=== PATIENT | female | born 1965 | race Caucasian/White ===

== ENCOUNTER 2016-05-25 10:15 | Emergency (ER) | payer OTHER ==
[2016-05-25 10:15] VITALS: BP 149/81
[~2016-05-25 10:15] MED LIST: AMOX875T PO; ANTI14DR4 AD; INSU100I13 SQ; INSU100V SQ; INSU100V8 SQ; OFLO5DRO4 AD; OXYC5CAP3 PO; PREG20SO PO; PREG50CA PO; TRAM50TA PO; WARF4TAB7 PO; WARF6TAB PO
[2016-05-25] MEDS ORDERED: IV NORMAL SALINE 1,000ML 1,000 ML IV ONE (10:30)
[2016-05-25] MEDS ORDERED: silver sulfADIAZINE 1% CREAM 50GM JAR. TP ONE (11:00)
[2016-05-25] MEDS ORDERED: INSULIN REGULAR 100 UNIT/ML 10ML VIAL. SQ ONE (11:00)
[2016-05-25] MEDS ORDERED: ALBUTEROL SULFATE 2.5 MG/3 ML NEBU. NEB ONE (11:00)
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
== END 2016-05-25 10:45 | disposition home or self-care (01) ==
LOC: ER 10:15
DX: T23.221A Burn of second degree of single right finger (nail) except thumb, initial encounter (principal); J70.5 Respiratory conditions due to smoke inhalation; E11.65 Type 2 diabetes mellitus with hyperglycemia; E11.621 Type 2 diabetes mellitus with foot ulcer; Z79.4 Long term (current) use of insulin; Z91.14 Patient's other noncompliance with medication regimen; Y26.XXXA Exposure to smoke, fire and flames, undetermined intent, initial encounter; Y93.89 Activity, other specified; Y99.8 Other external cause status; Y92.89 Other specified places as the place of occurrence of the external cause
CPT/HCPCS: 99283

== ENCOUNTER 2016-05-26 06:17 | Inpatient (IN) | payer OTHER ==
[~2016-05-26] VITALS: Ht 177.8 cm; Wt 78.2 kg
[2016-05-26] MEDS ORDERED: VANCOMYCIN 1 GM in IV NORMAL SALINE 250ML 250 ML IV ONE (06:45)
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
[2016-05-26] MEDS ORDERED: PIPERACILLIN/TAZOBACTAM 3.375 GM in IV NORMAL SALINE 50ML 50 ML IV ONE (07:00)
[2016-05-26] MEDS ORDERED: TETANUS AND DIPHTHERIA TOX/PF 0.5 ML VIAL. VAX IM ONE (07:00)
[2016-05-26] MEDS ORDERED: IV NORMAL SALINE 1,000ML 1,000 ML IV ONE (07:00)
[2016-05-26] MEDS ORDERED: INSULIN REGULAR 100 UNIT/ML 10ML VIAL. IV ONE ×2 (07:00→08:30)
[2016-05-26] MEDS ORDERED: VANCOMYCIN 1.75 GM in IV NORMAL SALINE 500ML 500 ML IV ONE ×2 (07:00→08:30)
--- NOTE | 2016-05-26 07:33 | RAD ---
Portable left foot, 3 views, 05/26/2016: History: Diabetes, wound No acute fracture or destructive bony lesion is seen. There are well corticated bony fragment along the dorsal aspect of the talonavicular articulation compatible with old trauma. There is moderate diffuse soft tissue swelling about the foot. IMPRESSION: No acute bony abnormality is detected.
[2016-05-26] MEDS ORDERED: PIPERACILLIN/TAZOBACTAM 3.375 GM VIAL IV ONE (07:50)
[2016-05-26] MEDS ORDERED: IV NORMAL SALINE 50ML 50 ML ONE (07:50)
[2016-05-26 07:55] LABS: BASO # 0.1 x10^3/uL (0.0-0.2); BASO % 1 % (0-3); EOS # 0.3 x10^3/uL (0.0-0.7); EOS % 3 % (0-3); HEMATOCRIT 40.8 % (36.0-47.0); HEMOGLOBIN 12.9 g/dL (12.0-15.5); LYMPH # 1.4 x10^3/uL (1.0-4.8); LYMPH % 13 % (24-48); MEAN CORPUSCULAR HEMOGLOBIN 29 pg (25-35); MEAN CORPUSCULAR HGB CONC 32 g/dL (31-37); MEAN CORPUSCULAR VOLUME 93 fL (79-100); MONO # 0.7 x10^3/uL (0.0-1.1); MONO % 6 % (0-9); NEUT # 8.6 x10^3uL (1.8-7.7); NEUT % 77 % (31-73); PLATELET COUNT 431 x10^3/uL (140-400); RED BLOOD COUNT 4.39 x10^6/uL (3.50-5.40); RED CELL DISTRIBUTION WIDTH 13.4 % (11.5-14.5); WHITE BLOOD COUNT 11.1 x10^3/uL (4.0-11.0)
[2016-05-26 08:01] LABS: ALBUMIN 1.9 g/dL (3.4-5.0); ALBUMIN/GLOBULIN RATIO 0.4 (1.0-1.7); CALCIUM 9.1 mg/dL (8.5-10.1); GFR 58.9; POTASSIUM 4.4 mmol/L (3.5-5.1); TOTAL BILIRUBIN 0.4 mg/dL (0.2-1.0); TOTAL PROTEIN 6.8 g/dL (6.4-8.2)
[2016-05-26 09:37] LABS: AMPHETAMINE/METHAMPHETAMINE NEG (NEG); BARBITURATES NEG (NEG); BENZODIAZEPINES NEG (NEG); CANNABINOIDS NEG (NEG); COCAINE NEG (NEG); METHADONE NEG (NEG); OPIATES NEG (NEG); PHENCYCLIDINE NEG (NEG)
[2016-05-26] MEDS: VANCOMYCIN PER PHARMACY MC PRN (10:37)
[2016-05-26] MEDS ORDERED: DEXTROSE 50% 25 GM / 50ML DISP.SYRIN. IV PRN (11:00)
[2016-05-26 11:03] VITALS: BP 154/96
[2016-05-26 11:38] VITALS: BP 142/92
[2016-05-26] MEDS: INSULIN ASPART 300 UNITS/3 ML INSULN.PEN SQ SCH ×3 (11:57→20:13)
[2016-05-26 14:34] VITALS: BP 131/81
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
[2016-05-26 19:41] VITALS: BP 150/89
[2016-05-26] MEDS: PREGABALIN 50 MG CAPSULE PO SCH (20:01)
[2016-05-26] MEDS: OXYCODONE IR 5 MG TABLET. PO SCH (20:01)
[2016-05-26] MEDS: VANCOMYCIN 1 GM in IV NORMAL SALINE 250ML 250 ML IV SCH (20:02)
[2016-05-26] MEDS ORDERED: INSULIN DETEMIR 300 UNITS/3 ML INSULN.PEN. SQ SCH (21:00)
[2016-05-26 23:05] VITALS: BP 105/66
[2016-05-27 05:15] VITALS: BP 100/67
[2016-05-27 06:25] LABS: BASO # 0.1 x10^3/uL (0.0-0.2); BASO % 1 % (0-3); EOS # 0.5 x10^3/uL (0.0-0.7); EOS % 5 % (0-3); HEMATOCRIT 37.5 % (36.0-47.0); HEMOGLOBIN 12.4 g/dL (12.0-15.5); LYMPH # 2.9 x10^3/uL (1.0-4.8); LYMPH % 32 % (24-48); MEAN CORPUSCULAR HEMOGLOBIN 31 pg (25-35); MEAN CORPUSCULAR HGB CONC 33 g/dL (31-37); MEAN CORPUSCULAR VOLUME 92 fL (79-100); MONO # 0.6 x10^3/uL (0.0-1.1); MONO % 7 % (0-9); NEUT # 4.9 x10^3uL (1.8-7.7); NEUT % 55 % (31-73); PLATELET COUNT 571 x10^3/uL (140-400); RED BLOOD COUNT 4.08 x10^6/uL (3.50-5.40); RED CELL DISTRIBUTION WIDTH 13.4 % (11.5-14.5)
[2016-05-27 06:41] LABS: ALBUMIN 1.5 g/dL (3.4-5.0); ALBUMIN/GLOBULIN RATIO 0.3 (1.0-1.7); CALCIUM 8.7 mg/dL (8.5-10.1); CREATININE 1.1 mg/dL (0.6-1.0); GFR 52.8; POTASSIUM 3.8 mmol/L (3.5-5.1); TOTAL BILIRUBIN 0.3 mg/dL (0.2-1.0); TOTAL PROTEIN 6.1 g/dL (6.4-8.2)
[2016-05-27 07:30] LABS: SEDIMENTATION RATE 125 (0-25)
[2016-05-27] MEDS ORDERED: INSULIN ASPART 300 UNITS/3 ML INSULN.PEN SQ SCH ×2 (08:00→17:00)
[2016-05-27] MEDS: PREGABALIN 50 MG CAPSULE PO SCH ×2 (08:13→20:20)
[2016-05-27] MEDS: OXYCODONE IR 5 MG TABLET. PO SCH ×4 (08:13→20:20)
[2016-05-27] MEDS: VANCOMYCIN 1 GM in IV NORMAL SALINE 250ML 250 ML IV SCH ×2 (08:14→20:21)
[2016-05-27] MEDS: INSULIN ASPART 300 UNITS/3 ML INSULN.PEN SQ SCH ×4 (08:18→20:27)
[2016-05-27 10:33] VITALS: BP 115/82
--- NOTE | 2016-05-27 12:35 | ACF ---
Admission Criteria Forms DIABETES Clinical Indications for Admission to Inpatient Care (Place 'X' for any and all applicable criteria): Admission is indicated by presence of ALL (if I & II) or ANY ONE (if III or IV) of the following (1)(2)(3)(4): [ ]I. Diabetes is uncontrolled as indicated by ANY ONE of the following: [ ]a) Diabetic ketoacidosis as indicated by ALL of the following (8): [ ]i) Hyperglycemia (eg, plasma glucose greater than 200 mg/ dL (11.1 mmol/L)) [ ]ii) Acidosis (eg, arterial pH less than 7.30, serum bicarbonate level less than 15 mEq/L (mmol/L)) [ ]iii) Moderate ketonuria or ketonemia [ ]b) Hyperglycemic hyperosmolar state as indicated by ALL of the following(9)(10): [ ]i) Neurologic dysfunction (eg, stupor, coma, hemiparesis , seizure)(13) [ ]ii) Plasma glucose greater than 600 mg/dL (33.3 mmol/L) [ ]iii) Serum osmolality greater than 320 mOsm/kg (mmol/kg) [ ]c) Severe signs or symptoms secondary to hyperglycemia indicated by ANY ONE of the following: [ ]i) Altered mental status(10) [ ]ii) Significant hypovolemia or dehydration [ ]iii) Intractable nausea or vomiting [ ]iv) Unexplained fever or severe infection [ ]v) Severe electrolyte abnormality (eg, hypokalemia, hyperkalemia, hypernatremia) [ ]II. Management at other levels of care (Also use Diabetes: Observation Care as appropriate) is not feasible because of ANY ONE of the following: [ ]a) Condition was not adequately corrected with treatment at other levels of care. [ ]b) Treatment at other levels of care is not appropriate because of condition severity (eg, hyperosmolar coma). [X ]III. Contraindications and/or Inappropriate clinical situations for Observational Care in patients with Diabetes, when ANY ONE of the following is required: [ X]a) Patient require specific diagnostic workup or therapeutic intervention 22 [ ]b) Patient with abnormal vital signs or altered mental status 23 [ ]IV. General contraindications and/or Inappropriate clinical situations for Observational Care in patients with Diabetes, when ANY ONE of the following is required: [ ]a) Prediction of prolongation of LOS based on ANY ONE of the following may be considered as a contraindication for observational care 2, 3, 4, 5, 6, 7, 8, 9, 10, 11 [ ]i) Age > 65 yrs. [ ]ii) Patient arriving by ambulance [ ]iii) Patient with high acuity [ ]iv) Patient requiring vital sign monitoring [ ]v) Patient on IV medication [ ]b) Systolic blood pressures 180mmHg 3,12 [ ]c) Patient with altered mental status including delirium and other alteration of consciousness, (3) [ ]d) Patient whose discharge disposition will be to a [facility] home or rehabilitation home should not be managed in Emergency Department Observation Unit. CMS rule requires 3 days hospital stay before such placement.3,13 [ ]e) Patient with failure to thrive due to broad array of etiologies 3,16,17 [ ]f) Inability to ambulate 3,14 Extended stay beyond goal length of stay may be needed for(3)(20): [ ]a) Treatment of precipitating causes [ ]b) Development of hypoglycemia [ ]c) Complications of treatment [ ]d) Complications of decompensated diabetes (eg, acute gastric dilatation, persistent metabolic or neurologic derangement) [ ]e) Active Comorbidities [ ]f) Older patients( 65 years or older) The original National Institutes of Health (NIH) content created by National [employer] of Health (NIH) has been revised. The portions of the content which have been revised are identified through the use of italic text or in bold,and [facility] has neither reviewed nor approved the modified material. All other unmodified content is copyright [facility]. Please see references footnoted in the original [facility] edition 2016 Admission Criteria Met?: Yes VIC MCCLELLAN May 27, 2016 12:35
[2016-05-27 15:40] VITALS: BP 132/83
[2016-05-27] MEDS ORDERED: PIP/TAZO PER PHARMACY MC PRN (16:00)
[2016-05-27] MEDS: WARFARIN 6 MG TABLET. PO SCH (17:04)
[2016-05-27] MEDS: INSULIN DETEMIR 300 UNITS/3 ML INSULN.PEN. SQ SCH (20:28)
[2016-05-27 20:30] VITALS: BP 129/78
[2016-05-27] MEDS: PIPERACILLIN/TAZOBACTAM 4.5 GM in IV NORMAL SALINE 50ML 50 ML IV SCH (21:22)
[2016-05-27 21:33] LABS: VANC TR 37.6 mcg/mL (10.0-20.0)
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
[2016-05-27] MEDS: VANCOMYCIN PER PHARMACY MC PRN (21:53)
[2016-05-28] MEDS: PIPERACILLIN/TAZOBACTAM 4.5 GM in IV NORMAL SALINE 50ML 50 ML IV SCH ×3 (05:35→22:29)
[2016-05-28 06:09] VITALS: BP 144/91
[2016-05-28] MEDS: PREGABALIN 50 MG CAPSULE PO SCH ×2 (08:26→20:25)
[2016-05-28] MEDS: OXYCODONE IR 5 MG TABLET. PO SCH ×4 (08:26→20:25)
[2016-05-28 08:55] LABS: CREATININE 1.2 mg/dL (0.6-1.0); GFR 47.7; POTASSIUM 4.7 mmol/L (3.5-5.1)
[2016-05-28] MEDS: VANCOMYCIN 1 GM in IV NORMAL SALINE 250ML 250 ML IV SCH (09:00)
[2016-05-28 09:01] LABS: VANC TR 20.6 mcg/mL (10.0-20.0)
[2016-05-28] MEDS: VANCOMYCIN PER PHARMACY MC PRN (09:36)
[2016-05-28] MEDS: INSULIN ASPART 300 UNITS/3 ML INSULN.PEN SQ SCH ×6 (09:50→20:31)
[2016-05-28] MEDS: VANCOMYCIN 750 MG in IV NORMAL SALINE 250ML 250 ML IV SCH ×2 (11:33→20:24)
[2016-05-28 12:16] VITALS: BP 134/81
[2016-05-28] MEDS: WARFARIN 6 MG TABLET. PO SCH (16:09)
[2016-05-28] MEDS: TRAMADOL 50 MG TABLET. PO PRN (16:10)
[2016-05-28 18:55] VITALS: BP 130/78
[2016-05-28] MEDS: INSULIN DETEMIR 300 UNITS/3 ML INSULN.PEN. SQ SCH (20:30)
[2016-05-28 21:21] VITALS: BP 128/74
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
[2016-05-28 22:10] LABS: HEMOGLOBIN A1C 15.2 % (4.8-5.6)
[2016-05-29] MEDS: PIPERACILLIN/TAZOBACTAM 4.5 GM in IV NORMAL SALINE 50ML 50 ML IV SCH ×2 (04:58→13:37)
[2016-05-29 05:14] VITALS: BP 132/91
[2016-05-29] MEDS: INSULIN ASPART 300 UNITS/3 ML INSULN.PEN SQ SCH ×7 (07:30→21:00)
[2016-05-29] MEDS: OXYCODONE IR 5 MG TABLET. PO SCH ×2 (08:56→13:37)
[2016-05-29] MEDS: PREGABALIN 50 MG CAPSULE PO SCH ×2 (08:56→20:55)
[2016-05-29] MEDS: VANCOMYCIN 750 MG in IV NORMAL SALINE 250ML 250 ML IV SCH ×2 (08:57→23:37)
[2016-05-29 12:45] VITALS: BP 145/80
[2016-05-29] MEDS ORDERED: IV NORMAL SALINE 250ML 250 ML ONE (13:13)
[2016-05-29] MEDS: OXYCODONE IR 5 MG TABLET. PO PRN ×2 (14:59→20:07)
[2016-05-29] MEDS: WARFARIN 6 MG TABLET. PO SCH (16:41)
[2016-05-29 19:00] VITALS: BP 148/93
[2016-05-29] MEDS ORDERED: INSULIN ASPART 300 UNITS/3 ML INSULN.PEN SQ SCH (21:00)
[2016-05-29] MEDS: INSULIN DETEMIR 300 UNITS/3 ML INSULN.PEN. SQ SCH (21:41)
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
[2016-05-30] MEDS: OXYCODONE IR 5 MG TABLET. PO PRN ×4 (00:10→22:08)
[2016-05-30] MEDS: PIPERACILLIN/TAZOBACTAM 4.5 GM in IV NORMAL SALINE 50ML 50 ML IV SCH ×4 (00:10→22:18)
[2016-05-30 05:44] VITALS: BP 124/80
[2016-05-30] MEDS: INSULIN ASPART 300 UNITS/3 ML INSULN.PEN SQ SCH ×7 (08:00→22:12)
[2016-05-30] MEDS: VANCOMYCIN 750 MG in IV NORMAL SALINE 250ML 250 ML IV SCH ×2 (08:55→22:08)
[2016-05-30] MEDS: PREGABALIN 50 MG CAPSULE PO SCH ×2 (09:00→22:08)
[2016-05-30 09:22] LABS: VANC TR 14.4 mcg/mL (10.0-20.0)
[2016-05-30 11:29] VITALS: BP 138/78
[2016-05-30] MEDS: TRAMADOL 50 MG TABLET. PO PRN (12:27)
[2016-05-30 14:58] VITALS: BP 136/83
[2016-05-30] MEDS: WARFARIN 6 MG TABLET. PO SCH (16:05)
[2016-05-30 19:30] VITALS: BP 132/81
[2016-05-30] MEDS: INSULIN DETEMIR 300 UNITS/3 ML INSULN.PEN. SQ SCH (22:18)
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
[2016-05-31] MEDS: OXYCODONE IR 5 MG TABLET. PO PRN ×3 (02:23→19:50)
[2016-05-31 05:09] VITALS: BP 138/89
[2016-05-31] MEDS: PIPERACILLIN/TAZOBACTAM 4.5 GM in IV NORMAL SALINE 50ML 50 ML IV SCH ×3 (06:16→21:38)
[2016-05-31 07:30] LABS: BASO # 0.1 x10^3/uL (0.0-0.2); BASO % 1 % (0-3); EOS # 0.4 x10^3/uL (0.0-0.7); EOS % 5 % (0-3); HEMATOCRIT 32.4 % (36.0-47.0); HEMOGLOBIN 10.9 g/dL (12.0-15.5); LYMPH # 1.8 x10^3/uL (1.0-4.8); LYMPH % 22 % (24-48); MEAN CORPUSCULAR HEMOGLOBIN 31 pg (25-35); MEAN CORPUSCULAR HGB CONC 34 g/dL (31-37); MEAN CORPUSCULAR VOLUME 93 fL (79-100); MONO # 0.6 x10^3/uL (0.0-1.1); MONO % 7 % (0-9); NEUT # 5.3 x10^3uL (1.8-7.7); NEUT % 64 % (31-73); PLATELET COUNT 451 x10^3/uL (140-400); RED CELL DISTRIBUTION WIDTH 13.7 % (11.5-14.5); WHITE BLOOD COUNT 8.2 x10^3/uL (4.0-11.0)
[2016-05-31 07:46] LABS: ALBUMIN 1.2 g/dL (3.4-5.0); ALBUMIN/GLOBULIN RATIO 0.3 (1.0-1.7); CALCIUM 8.5 mg/dL (8.5-10.1); CREATININE 1.2 mg/dL (0.6-1.0); GFR 47.7; MAGNESIUM 1.9 mg/dL (1.8-2.4); POTASSIUM 4.4 mmol/L (3.5-5.1); TOTAL BILIRUBIN 0.2 mg/dL (0.2-1.0); TOTAL PROTEIN 5.6 g/dL (6.4-8.2)
[2016-05-31] MEDS: VANCOMYCIN 750 MG in IV NORMAL SALINE 250ML 250 ML IV SCH ×2 (09:18→20:00)
[2016-05-31] MEDS: COLLAGENASE 250 UNIT/GM TOPICAL OINTMENT 30GM TUBE. TP SCH (09:20)
[2016-05-31] MEDS: PREGABALIN 50 MG CAPSULE PO SCH ×2 (09:21→19:59)
[2016-05-31] MEDS: INSULIN ASPART 300 UNITS/3 ML INSULN.PEN SQ SCH ×7 (09:32→20:01)
[2016-05-31] MEDS: INSULIN DETEMIR 300 UNITS/3 ML INSULN.PEN. SQ SCH ×2 (09:33→20:03)
[2016-05-31] MEDS ORDERED: FUROSEMIDE 40 MG/4 ML VIAL IVP ONE (10:30)
[2016-05-31] MEDS: PANTOPRAZOLE 40 MG TABLET. PO SCH (12:09)
[2016-05-31] MEDS ORDERED: MORPHINE SULFATE 4 MG/ML DISP.SYRIN. IV ONE (14:30)
[2016-05-31 15:53] VITALS: BP 129/84
[2016-05-31] MEDS: WARFARIN 6 MG TABLET. PO SCH (16:59)
[2016-05-31 18:55] VITALS: BP 153/93
[2016-05-31] MEDS: TRAMADOL 50 MG TABLET. PO PRN (19:59)
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
[2016-05-31] MEDS ORDERED: IV NORMAL SALINE 100ML 100 ML ONE (21:35)
[2016-05-31 22:26] VITALS: BP 171/92
[2016-06-01] MEDS: PIPERACILLIN/TAZOBACTAM 4.5 GM in IV NORMAL SALINE 50ML 50 ML IV SCH ×3 (05:08→21:56)
[2016-06-01 06:12] VITALS: BP 153/97
[2016-06-01 06:26] LABS: ALBUMIN 1.3 g/dL (3.4-5.0); ALBUMIN/GLOBULIN RATIO 0.4 (1.0-1.7); CALCIUM 8.3 mg/dL (8.5-10.1); CREATININE 1.1 mg/dL (0.6-1.0); GFR 52.8; MAGNESIUM 1.8 mg/dL (1.8-2.4); POTASSIUM 3.7 mmol/L (3.5-5.1); TOTAL BILIRUBIN 0.2 mg/dL (0.2-1.0); TOTAL PROTEIN 4.8 g/dL (6.4-8.2)
[2016-06-01 06:30] LABS: BASO # 0.1 x10^3/uL (0.0-0.2); BASO % 1 % (0-3); EOS # 0.4 x10^3/uL (0.0-0.7); EOS % 4 % (0-3); HEMATOCRIT 35.3 % (36.0-47.0); HEMOGLOBIN 11.7 g/dL (12.0-15.5); LYMPH # 2.2 x10^3/uL (1.0-4.8); LYMPH % 19 % (24-48); MEAN CORPUSCULAR HEMOGLOBIN 31 pg (25-35); MEAN CORPUSCULAR HGB CONC 33 g/dL (31-37); MEAN CORPUSCULAR VOLUME 92 fL (79-100); MONO # 0.7 x10^3/uL (0.0-1.1); MONO % 6 % (0-9); NEUT # 8.1 x10^3uL (1.8-7.7); NEUT % 71 % (31-73); PLATELET COUNT 533 x10^3/uL (140-400); RED BLOOD COUNT 3.82 x10^6/uL (3.50-5.40); RED CELL DISTRIBUTION WIDTH 13.4 % (11.5-14.5); WHITE BLOOD COUNT 11.5 x10^3/uL (4.0-11.0)
[2016-06-01] MEDS: INSULIN ASPART 300 UNITS/3 ML INSULN.PEN SQ SCH ×7 (07:30→20:40)
[2016-06-01] MEDS: PANTOPRAZOLE 40 MG TABLET. PO SCH (08:59)
[2016-06-01] MEDS: ASCORBIC ACID 500 MG TABLET PO SCH (08:59)
[2016-06-01] MEDS: ZINC SULFATE 220 MG CAPSULE. PO SCH (08:59)
[2016-06-01] MEDS: ENOXAPARIN 40 MG/0.4 ML DISP.SYRIN. SQ SCH (08:59)
[2016-06-01] MEDS: PREGABALIN 50 MG CAPSULE PO SCH ×2 (09:00→20:40)
[2016-06-01] MEDS: VANCOMYCIN 750 MG in IV NORMAL SALINE 250ML 250 ML IV SCH ×2 (09:01→20:40)
[2016-06-01] MEDS: INSULIN DETEMIR 300 UNITS/3 ML INSULN.PEN. SQ SCH ×2 (09:21→20:49)
[2016-06-01] MEDS: OXYCODONE IR 5 MG TABLET. PO PRN ×2 (12:43→20:41)
--- NOTE | 2016-06-01 12:47 | RAD ---
Left foot, 3 views, 06/01/2016: History: Diabetic foot ulcer No fracture or destructive bony lesion is seen. There are mild pattern degenerative changes. There is moderate soft tissue swelling IMPRESSION: No acute bony abnormality is detected.
[2016-06-01] MEDS: TRAMADOL 50 MG TABLET. PO PRN (15:43)
[2016-06-01] MEDS: COLLAGENASE 250 UNIT/GM TOPICAL OINTMENT 30GM TUBE. TP SCH (15:44)
[2016-06-01 15:52] VITALS: BP 154/103
[2016-06-01] MEDS ORDERED: WARFARIN 1 MG TABLET. PO SCH (16:00)
[2016-06-01] MEDS ORDERED: WARFARIN 6 MG TABLET. PO SCH (16:00)
[2016-06-01] MEDS ORDERED: CLONIDINE TTS-1 PATCH TD SCH (17:00)
[2016-06-01 18:18] VITALS: BP 139/80
[2016-06-01 18:20] VITALS: BP 135/65
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
[2016-06-02] MEDS: TRAMADOL 50 MG TABLET. PO PRN (01:09)
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
[2016-06-02] MEDS: PIPERACILLIN/TAZOBACTAM 4.5 GM in IV NORMAL SALINE 50ML 50 ML IV SCH (06:21)
[2016-06-02 06:26] VITALS: BP 151/93
[2016-06-02] MEDS: ENOXAPARIN 40 MG/0.4 ML DISP.SYRIN. SQ SCH ×2 (07:30→12:13)
[2016-06-02] MEDS: INSULIN ASPART 300 UNITS/3 ML INSULN.PEN SQ SCH ×4 (07:30→12:15)
[2016-06-02] MEDS: ASCORBIC ACID 500 MG TABLET PO SCH (08:44)
[2016-06-02] MEDS: OXYCODONE IR 5 MG TABLET. PO PRN (08:44)
[2016-06-02] MEDS: PANTOPRAZOLE 40 MG TABLET. PO SCH (08:44)
[2016-06-02] MEDS: PREGABALIN 50 MG CAPSULE PO SCH (08:44)
[2016-06-02] MEDS: ZINC SULFATE 220 MG CAPSULE. PO SCH (08:44)
[2016-06-02] MEDS: VANCOMYCIN 750 MG in IV NORMAL SALINE 250ML 250 ML IV SCH (08:45)
[2016-06-02] MEDS: INSULIN DETEMIR 300 UNITS/3 ML INSULN.PEN. SQ SCH (08:53)
[2016-06-02] MEDS: COLLAGENASE 250 UNIT/GM TOPICAL OINTMENT 30GM TUBE. TP SCH (09:00)
== END 2016-06-02 12:45 | DRG 622 ==
LOC: ER 06:17 → 1 SOUTH 06:57
PROVIDERS: ADMIT Internal Medicine; ATTEND Internal Medicine
PROC: 0JBR0ZZ Excision of Left Foot Subcutaneous Tissue and Fascia, Open Approach (ICD-10-PCS; principal; 2016-06-01)
PROC: 0HBLXZZ Excision of Left Lower Leg Skin, External Approach (ICD-10-PCS; 2016-06-01)
DX: E10.621 Type 1 diabetes mellitus with foot ulcer (principal); E43 Unspecified severe protein-calorie malnutrition; R65.10 Systemic inflammatory response syndrome (SIRS) of non-infectious origin without acute organ dysfunction; T25.222A Burn of second degree of left foot, initial encounter; E10.22 Type 1 diabetes mellitus with diabetic chronic kidney disease; E10.42 Type 1 diabetes mellitus with diabetic polyneuropathy; E10.628 Type 1 diabetes mellitus with other skin complications; E10.65 Type 1 diabetes mellitus with hyperglycemia; E78.5 Hyperlipidemia, unspecified; F19.10 Other psychoactive substance abuse, uncomplicated; G89.29 Other chronic pain; I12.9 Hypertensive chronic kidney disease with stage 1 through stage 4 chronic kidney disease, or unspecified chronic kidney disease; F17.210 Nicotine dependence, cigarettes, uncomplicated; E10.51 Type 1 diabetes mellitus with diabetic peripheral angiopathy without gangrene; J70.5 Respiratory conditions due to smoke inhalation; N18.9 Chronic kidney disease, unspecified; L97.529 Non-pressure chronic ulcer of other part of left foot with unspecified severity; Z59.0 Homelessness; Z80.1 Family history of malignant neoplasm of trachea, bronchus and lung; Z91.11 Patient's noncompliance with dietary regimen; Z91.14 Patient's other noncompliance with medication regimen; Z91.19 Patient's noncompliance with other medical treatment and regimen; Z79.4 Long term (current) use of insulin; Z88.5 Allergy status to narcotic agent; Z89.421 Acquired absence of other right toe(s); Z68.24 Body mass index [BMI] 24.0-24.9, adult; T24.102A Burn of first degree of unspecified site of left lower limb, except ankle and foot, initial encounter
CPT/HCPCS: 36415; 73630; 80048; 80053; 80202; 82010; 82947; 83036; 83605; 83735; 84443; 85027; 85610; 85651; 86140; 87040; 90471; 90714; 96365; 96375; G0480; G0481; J0775; J1650; J1815; J1940; J2270; J2543; J3370; J7040; J7050; 99285-25; J7030

== ENCOUNTER 2017-01-10 07:47 | Inpatient (IN) | payer OTHER ==
[~2017-01-10] VITALS: Ht 177.8 cm; Wt 84.1 kg
[~2017-01-10 07:47] MED LIST changes: +OXYC5CAP PO; -OXYC5CAP3 PO
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
[2017-01-10] MEDS ORDERED: ONDANSETRON PF 4 MG/2 ML VIAL. IV ONE (08:00)
[2017-01-10] MEDS ORDERED: IV NORMAL SALINE 1,000ML 1,000 ML IV ONE (08:00)
[2017-01-10 08:28] LABS: BASO # 0.1 x10^3/uL (0.0-0.2); BASO % 1 % (0-3); EOS # 0.2 x10^3/uL (0.0-0.7); EOS % 3 % (0-3); HEMOGLOBIN 13.3 g/dL (12.0-15.5); LYMPH # 1.7 x10^3/uL (1.0-4.8); LYMPH % 24 % (24-48); MEAN CORPUSCULAR HEMOGLOBIN 28 pg (25-35); MEAN CORPUSCULAR HGB CONC 33 g/dL (31-37); MEAN CORPUSCULAR VOLUME 86 fL (79-100); MONO # 0.5 x10^3/uL (0.0-1.1); MONO % 7 % (0-9); NEUT # 4.8 x10^3uL (1.8-7.7); NEUT % 66 % (31-73); PLATELET COUNT 369 x10^3/uL (140-400); RED BLOOD COUNT 4.76 x10^6/uL (3.50-5.40); RED CELL DISTRIBUTION WIDTH 15.3 % (11.5-14.5); WHITE BLOOD COUNT 7.3 x10^3/uL (4.0-11.0)
--- NOTE | 2017-01-10 08:32 | RAD ---
Indication nausea vomiting and chills. A single view of the chest was obtained. No prior imaging of the chest is available. The heart, pulmonary vessels and mediastinum appear normal. The lungs are clear. Bony structures appear grossly intact. IMPRESSION: No acute finding in the chest
[2017-01-10 08:50] LABS: ALBUMIN 1.8 g/dL (3.4-5.0); CALCIUM 8.3 mg/dL (8.5-10.1); CREATININE 1.5 mg/dL (0.6-1.0); DIRECT BILIRUBIN 0.1 mg/dL (0.0-0.2); GFR 36.8; TOTAL BILIRUBIN 0.5 mg/dL (0.2-1.0); TOTAL PROTEIN 5.2 g/dL (6.4-8.2)
[2017-01-10 08:52] LABS: POTASSIUM 2.9 mmol/L (3.5-5.1)
[2017-01-10] MEDS ORDERED: silver sulfADIAZINE 1% CREAM 50GM JAR. TP ONE (09:30)
[2017-01-10] MEDS ORDERED: ONDANSETRON PF 4 MG/2 ML VIAL. IV PRN (10:00)
[2017-01-10] MEDS ORDERED: POTASSIUM CHLORIDE 20 MEQ TABLET.ER. PO ONE ×2 (10:00→13:30)
[2017-01-10] MEDS ORDERED: DIPHTH,PERTUSS(ACELL),TET TOX 0.5 ML DISP.SYRIN. VAX IM ONE (10:15)
[2017-01-10 12:33] VITALS: BP 182/97
[2017-01-10] MEDS ORDERED: INSULIN ASPART 300 UNITS/3 ML INSULN.PEN SQ ONE (13:30)
--- NOTE | 2017-01-10 13:54 | EKG ---
[address] [address] Test Date: 2017-01-10 Test Time: 08:52:08 Pat Name: REMY REARDON Department: Room: 119 A Gender: F Yarn Carrier: CARL : 1965 Requested By: LEORA HUSSEIN Order Number: [id number] Reading MD: Keith Martinez MD Measurements Intervals [place] Rate: 100 P: 54 [place]: 154 QRS: 3 QRSD: 94 T: 90 QT: 376 QTc: 488 Interpretive Statements SINUS RHYTHM QRS(T) CONTOUR ABNORMALITY CONSISTENT WITH ANTEROSEPTAL INFARCT PROBABLY OLD CONSIDER INFERIOR MYOCARDIAL DAMAGE ST & T ABNORMALITY, CONSIDER Electronically Signed On 01-12-2017 16:21:45 CDT by Keith Martinez MD
[2017-01-10] MEDS ORDERED: ASPI325T8 PO (14:45)
[2017-01-10] MEDS ORDERED: ATOR10TA PO (14:45)
[2017-01-10] MEDS ORDERED: LOSA100T6 PO (14:45)
[2017-01-10] MEDS ORDERED: CEPH500C PO (14:46)
[2017-01-10 15:03] VITALS: BP 160/98
[2017-01-10] MEDS ORDERED: traMADol 50 MG TABLET PO PRN (15:15)
[2017-01-10] MEDS ORDERED: VANCOMYCIN 2 GM in IV NORMAL SALINE 500ML 500 ML IV ONE (17:00)
[2017-01-10] MEDS ORDERED: WARFARIN 6 MG TABLET. PO SCH (17:15)
[2017-01-10] MEDS: INSULIN ASPART 300 UNITS/3 ML INSULN.PEN SQ SCH (17:19)
[2017-01-10] MEDS: VANCOMYCIN PER PHARMACY MC PRN (17:27)
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
[2017-01-10] MEDS: POTASSIUM CL 40MEQ IN 0.9%NACL 1,000 ML IV SCH (19:16)
[2017-01-10 20:45] VITALS: BP 130/80
[2017-01-10] MEDS: ZINC SULFATE 220 MG CAPSULE. PO SCH (22:11)
[2017-01-10] MEDS: ATORVASTATIN CALCIUM 10 MG TABLET. PO SCH (22:11)
[2017-01-10] MEDS: NICOTINE 14MG PATCH. TD SCH (22:12)
[2017-01-10] MEDS: ASCORBIC ACID 500 MG TABLET PO SCH (22:16)
[2017-01-10] MEDS: INSULIN DETEMIR 300 UNITS/3 ML INSULN.PEN. SQ SCH (22:21)
[2017-01-10] MEDS ORDERED: PREGABALIN 50 MG CAPSULE ONE (22:22)
[2017-01-10] MEDS: PREGABALIN 50 MG CAPSULE PO SCH (22:23)
[2017-01-10 23:00] VITALS: BP 166/95
[2017-01-11 05:50] VITALS: BP 139/83
[2017-01-11] MEDS ORDERED: POTASSIUM CL 40MEQ IN 0.9%NACL 1,000 ML IV ONE ×2 (06:08→11:40)
[2017-01-11] MEDS: POTASSIUM CL 40MEQ IN 0.9%NACL 1,000 ML IV SCH ×3 (06:38→21:58)
[2017-01-11 07:32] LABS: CALCIUM 8.1 mg/dL (8.5-10.1); CREATININE 1.2 mg/dL (0.6-1.0); GFR 47.6
[2017-01-11 07:33] LABS: BASO # 0.1 x10^3/uL (0.0-0.2); BASO % 1 % (0-3); EOS # 0.3 x10^3/uL (0.0-0.7); EOS % 4 % (0-3); HEMATOCRIT 40.1 % (36.0-47.0); HEMOGLOBIN 12.9 g/dL (12.0-15.5); LYMPH # 1.9 x10^3/uL (1.0-4.8); LYMPH % 25 % (24-48); MEAN CORPUSCULAR HEMOGLOBIN 28 pg (25-35); MEAN CORPUSCULAR HGB CONC 32 g/dL (31-37); MEAN CORPUSCULAR VOLUME 88 fL (79-100); MONO # 0.6 x10^3/uL (0.0-1.1); MONO % 8 % (0-9); NEUT # 4.7 x10^3uL (1.8-7.7); NEUT % 62 % (31-73); PLATELET COUNT 283 x10^3/uL (140-400); RED BLOOD COUNT 4.56 x10^6/uL (3.50-5.40); RED CELL DISTRIBUTION WIDTH 15.6 % (11.5-14.5); WHITE BLOOD COUNT 7.6 x10^3/uL (4.0-11.0)
[2017-01-11] MEDS: INSULIN ASPART 300 UNITS/3 ML INSULN.PEN SQ SCH ×2 (07:56→16:52)
[2017-01-11] MEDS ORDERED: ASPIRIN 325 MG TABLET ONE (08:38)
[2017-01-11] MEDS ORDERED: NICOTINE 14MG PATCH. TD ONE (08:38)
[2017-01-11] MEDS ORDERED: ZINC SULFATE 220 MG CAPSULE. PO ONE (08:38)
[2017-01-11] MEDS ORDERED: ASCORBIC ACID 500 MG TABLET ONE (08:39)
[2017-01-11] MEDS ORDERED: LOSARTAN 50 MG TABLET. ONE (08:39)
[2017-01-11] MEDS ORDERED: PREGABALIN 150 MG CAPSULE ONE (08:39)
[2017-01-11] MEDS: ASCORBIC ACID 500 MG TABLET PO SCH (08:49)
[2017-01-11] MEDS: ASPIRIN 325 MG TABLET PO SCH (08:49)
[2017-01-11] MEDS: ZINC SULFATE 220 MG CAPSULE. PO SCH (08:50)
[2017-01-11] MEDS: LOSARTAN 50 MG TABLET. PO SCH (08:50)
[2017-01-11] MEDS: NICOTINE 14MG PATCH. TD SCH (08:52)
[2017-01-11] MEDS: PREGABALIN 50 MG CAPSULE PO SCH ×2 (09:00→21:26)
[2017-01-11] MEDS ORDERED: IOHEXOL 300 MG/ML 75 ML VIAL. IV ONE (09:00)
[2017-01-11 11:03] VITALS: BP 170/109
[2017-01-11] MEDS ORDERED: INSULIN ASPART 300 UNITS/3 ML INSULN.PEN SQ SCH (11:30)
[2017-01-11 11:33] LABS: BARBITURATES NEG (NEG); BENZODIAZEPINES NEG (NEG); CANNABINOIDS NEG (NEG); COCAINE NEG (NEG); METHADONE NEG (NEG); OPIATES NEG (NEG); PHENCYCLIDINE NEG (NEG)
[2017-01-11 11:34] LABS: BACTERIA,URINE 0 /HPF (0-FEW); BILIRUBIN,URINE NEG (NEG); CLARITY,URINE CLEAR; COLOR,URINE STRAW; GLUCOSE,URINE >=1000 mg/dL (NEG); NITRITE,URINE NEG (NEG); SQUAMOUS EPITHELIAL CELL,UR OCC /LPF; UROBILINOGEN,URINE 0.2 mg/dL (0.2 mg/dL); WBC,URINE 0 /HPF (0-4)
[2017-01-11 11:38] LABS: AMPHETAMINE/METHAMPHETAMINE POS (NEG)
[2017-01-11] MEDS ORDERED: cloNIDine HCL 0.1 MG TABLET PO PRN (12:00)
[2017-01-11] MEDS ORDERED: cloNIDine HCL 0.1 MG TABLET PO ONE (12:30)
[2017-01-11 12:56] VITALS: BP 159/92
--- NOTE | 2017-01-11 13:28 | RAD ---
CT of the left foot with contrast, 01/11/2017: History: Foot ulcers, possible osteomyelitis Multidetector CT imaging was performed following an IV bolus injection of iodinated contrast material. No destructive bony lesion or fracture is identified. There is moderate hypertrophic degenerative change at the talonavicular articulation. Mild degenerative changes are present without other scattered fluid and ankle joints. There is moderate subcutaneous edema, particularly along the plantar aspect of the foot. There is a focus of increased density in the soft tissues along the plantar aspect of the third MTP joint, likely related to one of the patient's known plantar ulcers. No focal fluid collection is seen to suggest a discrete abscess. IMPRESSION: No acute bony abnormality is detected.
[2017-01-11 15:26] VITALS: BP 123/71
--- NOTE | 2017-01-11 15:54 | PDOC ---
SUBJECTIVE: DOING A LITTLE BIT BETTER TODAY. WOUND NURSE HERE FOR ULCER DEBRIDEMENT. HAS BEEN CALM AND NOT TOO ANXIOUS. COOPERATING WITH STAFF. OBJECTIVE: Problems: Problems Medical Problems: (1) Diabetic foot ulcer Status: Acute (2) Uncontrolled diabetes mellitus Status: Acute ASSESSMENT: A 51-year-old in debilitated state. 1. Frequent stools, questionable parasite. 2. Had been on long-term cephalexin at some point, is at risk for C. diff. 3. Hypokalemia. 4. Elevated creatinine, questionable whether it is acute versus chronic. 5. Dehydration. 6. Left diabetic foot ulcer. 7. Tobacco use disorder. 8. Noncompliance. 9. Poorly controlled type 1 diabetes. 10. Severe hypoalbuminemia 11. Mild cellulitis of the left foot and keenan. LEFT PLANTAR FOOT ULCER , AFTER INFORMED CONSENT AND WITH THE ASSISTANCE OF VIRGEN GU WAS DEBRIDED WITHOUT DIFFICULTY. THE ESCHAR WAS UNEARTHED AND SHE HAS WHAT APPEARS TO BE A STAGE 1 BOWMAN ULCER. GOOD HOMEOSTASIS WAS OBTAINED AND SHE HAD NO PAIN DURING THE PROCEDURE. DRESSED BY WOUND NURSE. Vital Signs: Vital Signs Date Time Temp Pulse Resp B/P (MAP) Pulse Ox O2 Delivery O2 Flow Rate FiO2 01/11/17 15:26 99.7 99 20 123/71 (88) 96 Room Air I & O Intake and Output 01/12/17 07:00 Intake Total 400 ml Output Total 1000 ml Balance -600 ml Intake Oral 400 ml Output Urine Total 1000 ml Labs: Laboratory Tests Test 01/10/17 08:07 01/10/17 08:30 01/10/17 12:15 01/10/17 12:39 White Blood Count 7.3 x10^3/uL (4.0-11.0) Red Blood Count 4.76 x10^6/uL (3.50-5.40) Hemoglobin 13.3 g/dL (12.0-15.5) Hematocrit 41.0 % (36.0-47.0) Mean Corpuscular Volume 86 fL (79-100) Mean Corpuscular Hemoglobin 28 pg (25-35) Mean Corpuscular Hemoglobin Concent 33 g/dL (31-37) Red Cell Distribution Width 15.3 % (11.5-14.5) Platelet Count 369 x10^3/uL (140-400) Neutrophils (%) (Auto) 66 % (31-73) Lymphocytes (%) (Auto) 24 % (24-48) Monocytes (%) (Auto) 7 % (0-9) Eosinophils (%) (Auto) 3 % (0-3) Basophils (%) (Auto) 1 % (0-3) Neutrophils # (Auto) 4.8 x10^3uL (1.8-7.7) Lymphocytes # (Auto) 1.7 x10^3/uL (1.0-4.8) Monocytes # (Auto) 0.5 x10^3/uL (0.0-1.1) Eosinophils # (Auto) 0.2 x10^3/uL (0.0-0.7) Basophils # (Auto) 0.1 x10^3/uL (0.0-0.2) Sodium Level 136 mmol/L (136-145) Potassium Level 2.9 mmol/L (3.5-5.1) Chloride Level 100 mmol/L (98-107) Carbon Dioxide Level 22 mmol/L (21-32) Anion Gap 14 (6-14) Blood Urea Nitrogen 18 mg/dL (7-20) Creatinine 1.5 mg/dL (0.6-1.0) Estimated GFR (Cockcroft-Gault) 36.8 Glucose Level 314 mg/dL (70-99) Lactic Acid Level 1.5 mmol/L (0.4-2.0) Calcium Level 8.3 mg/dL (8.5-10.1) Magnesium Level 2.0 mg/dL (1.8-2.4) Total Bilirubin 0.5 mg/dL (0.2-1.0) Direct Bilirubin 0.1 mg/dL (0.0-0.2) Aspartate Amino Transf (AST/SGOT) 23 U/L (15-37) Alanine Aminotransferase (ALT/SGPT) 19 U/L (14-59) Alkaline Phosphatase 126 U/L (46-116) Creatine Kinase 445 U/L (26-192) Creatine Kinase MB (Mass) 5.1 ng/mL (0.0-3.6) Creatine Kinase MB Relative Index 1.1 % (0-4) Troponin I Quantitative 0.020 ng/mL (0-0.055) YE-Qgs-P-Type Natriuretic Peptide 3218 pg/mL (0-124) Total Protein 5.2 g/dL (6.4-8.2) Albumin 1.8 g/dL (3.4-5.0) Lipase 101 U/L (73-393) Thyroid Stimulating Hormone (TSH) 0.984 uIU/mL (0.358-3.740) Prothrombin Time 13.5 SEC (9.4-11.4) Prothromb Time International Ratio 1.3 (0.9-1.1) Activated Partial Thromboplast Time 26 SEC (23-33) Clostridium difficile Toxin (PCR) Negative (Negative) Glucose (Fingerstick) 466 mg/dL (70-99) Test 01/10/17 15:05 01/10/17 16:38 01/10/17 20:50 01/10/17 22:25 Troponin I Quantitative 0.019 ng/mL (0-0.055) 0.029 ng/mL (0-0.055) Glucose (Fingerstick) 339 mg/dL (70-99) 292 mg/dL (70-99) Test 01/11/17 07:10 01/11/17 07:31 01/11/17 11:19 01/11/17 11:25 White Blood Count 7.6 x10^3/uL (4.0-11.0) Red Blood Count 4.56 x10^6/uL (3.50-5.40) Hemoglobin 12.9 g/dL (12.0-15.5) Hematocrit 40.1 % (36.0-47.0) Mean Corpuscular Volume 88 fL (79-100) Mean Corpuscular Hemoglobin 28 pg (25-35) Mean Corpuscular Hemoglobin Concent 32 g/dL (31-37) Red Cell Distribution Width 15.6 % (11.5-14.5) Platelet Count 283 x10^3/uL (140-400) Neutrophils (%) (Auto) 62 % (31-73) Lymphocytes (%) (Auto) 25 % (24-48) Monocytes (%) (Auto) 8 % (0-9) Eosinophils (%) (Auto) 4 % (0-3) Basophils (%) (Auto) 1 % (0-3) Neutrophils # (Auto) 4.7 x10^3uL (1.8-7.7) Lymphocytes # (Auto) 1.9 x10^3/uL (1.0-4.8) Monocytes # (Auto) 0.6 x10^3/uL (0.0-1.1) Eosinophils # (Auto) 0.3 x10^3/uL (0.0-0.7) Basophils # (Auto) 0.1 x10^3/uL (0.0-0.2) Prothrombin Time 11.6 SEC (9.4-11.4) Prothromb Time International Ratio 1.1 (0.9-1.1) Sodium Level 135 mmol/L (136-145) Potassium Level 4.0 mmol/L (3.5-5.1) Chloride Level 107 mmol/L (98-107) Carbon Dioxide Level 21 mmol/L (21-32) Anion Gap 7 (6-14) Blood Urea Nitrogen 16 mg/dL (7-20) Creatinine 1.2 mg/dL (0.6-1.0) Estimated GFR (Cockcroft-Gault) 47.6 Glucose Level 321 mg/dL (70-99) Calcium Level 8.1 mg/dL (8.5-10.1) Magnesium Level 2.2 mg/dL (1.8-2.4) Glucose (Fingerstick) 308 mg/dL (70-99) 305 mg/dL (70-99) Urine Collection Type Unknown Urine Color Straw Urine Clarity Clear Urine pH 7.0 Urine Specific [place] 1.015 Urine Protein >100 mg/dl (NEG-TRACE) Urine Glucose (UA) >=1000 mg/dL (NEG) Urine Ketones (Stick) Neg mg/dL (NEG) Urine Blood Mod (NEG) Urine Nitrite Neg (NEG) Urine Bilirubin Neg (NEG) Urine Urobilinogen Dipstick 0.2 mg/dL (0.2 mg/dL) Urine Leukocyte Esterase Neg (NEG) Urine RBC 6-10 /HPF (0-2) Urine WBC 0 /HPF (0-4) Urine Squamous Epithelial Cells Occ /LPF Urine Bacteria 0 /HPF (0-FEW) Urine Opiates Screen Neg (NEG) Urine Methadone Screen Neg (NEG) Urine Barbiturates Neg (NEG) Urine Phencyclidine Screen Neg (NEG) Urine Amphetamine/Methamphetamine Pos (NEG) Urine Benzodiazepines Screen Neg (NEG) Urine Cocaine Screen Neg (NEG) Urine Cannabinoids Screen Neg (NEG) Urine Ethyl Alcohol Neg (NEG) Physical Exam: SEE WOUND NOTE. ASSESSMENT: ABOVE, S/P DEBRIDEMENT OF LEFT FOOT WOUND PLAN: CONTINUE WOUND CARE, ANTIBIOTICS, OBSERVE FOR METHAMPHETAMINE WITHDRAWAL, TREAT ELEVATIED BP. JOSH DURON DO Jan 11, 2017 15:54
[2017-01-11] MEDS ORDERED: WARFARIN 7.5 MG TABLET. PO ONE (16:00)
[2017-01-11] MEDS: VANCOMYCIN 1.25 GM in IV NORMAL SALINE 250ML 250 ML IV SCH (18:02)
[2017-01-11 19:26] VITALS: BP 13/82
[2017-01-11] MEDS: ATORVASTATIN CALCIUM 10 MG TABLET. PO SCH (21:26)
[2017-01-11] MEDS: INSULIN DETEMIR 300 UNITS/3 ML INSULN.PEN. SQ SCH (21:37)
[2017-01-11 23:31] VITALS: BP 117/74
[2017-01-12 05:12] VITALS: BP 112/72
[2017-01-12] MEDS: POTASSIUM CL 40MEQ IN 0.9%NACL 1,000 ML IV SCH (06:08)
[2017-01-12] MEDS: INSULIN ASPART 300 UNITS/3 ML INSULN.PEN SQ SCH ×3 (08:09→17:07)
[2017-01-12 08:23] LABS: ALBUMIN 1.5 g/dL (3.4-5.0); ALBUMIN/GLOBULIN RATIO 0.5 (1.0-1.7); CALCIUM 7.8 mg/dL (8.5-10.1); CREATININE 1.2 mg/dL (0.6-1.0); GFR 47.6; MAGNESIUM 1.9 mg/dL (1.8-2.4); POTASSIUM 4.8 mmol/L (3.5-5.1); TOTAL BILIRUBIN 0.3 mg/dL (0.2-1.0); TOTAL PROTEIN 4.8 g/dL (6.4-8.2)
[2017-01-12 08:23] LABS: BASO % 1 % (0-3); EOS # 0.2 x10^3/uL (0.0-0.7); EOS % 2 % (0-3); HEMATOCRIT 39.8 % (36.0-47.0); LYMPH # 1.6 x10^3/uL (1.0-4.8); LYMPH % 21 % (24-48); MEAN CORPUSCULAR HEMOGLOBIN 29 pg (25-35); MEAN CORPUSCULAR HGB CONC 33 g/dL (31-37); MEAN CORPUSCULAR VOLUME 88 fL (79-100); MONO # 0.5 x10^3/uL (0.0-1.1); MONO % 6 % (0-9); NEUT # 5.6 x10^3uL (1.8-7.7); NEUT % 70 % (31-73); PLATELET COUNT 350 x10^3/uL (140-400); RED BLOOD COUNT 4.54 x10^6/uL (3.50-5.40); RED CELL DISTRIBUTION WIDTH 15.7 % (11.5-14.5); WHITE BLOOD COUNT 7.9 x10^3/uL (4.0-11.0)
[2017-01-12] MEDS: DULoxetine HCL 30 MG CAPSULE.DR PO SCH (08:48)
[2017-01-12] MEDS: NICOTINE 14MG PATCH. TD SCH (08:49)
[2017-01-12] MEDS: PREGABALIN 50 MG CAPSULE PO SCH ×2 (08:49→21:20)
[2017-01-12] MEDS: ASCORBIC ACID 500 MG TABLET PO SCH (08:50)
[2017-01-12] MEDS: ASPIRIN 325 MG TABLET PO SCH (08:50)
[2017-01-12] MEDS: ZINC SULFATE 220 MG CAPSULE. PO SCH (08:50)
[2017-01-12] MEDS: LOSARTAN 50 MG TABLET. PO SCH (08:50)
[2017-01-12] MEDS: INSULIN DETEMIR 300 UNITS/3 ML INSULN.PEN. SQ SCH ×2 (08:57→21:19)
[2017-01-12] MEDS ORDERED: LOPERAMIDE 2 MG CAPSULE PO ONE (09:45)
[2017-01-12] MEDS ORDERED: LOPERAMIDE 2 MG CAPSULE PO PRN (09:45)
[2017-01-12] MEDS: PANTOPRAZOLE 40 MG TABLET. PO SCH (10:00)
[2017-01-12] MEDS: PRENATAL MULTIVITAMIN TABLET. PO SCH (10:00)
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
[2017-01-12 10:39] VITALS: BP 157/92
[2017-01-12 14:23] VITALS: BP 129/80
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
[2017-01-12] MEDS ORDERED: WARFARIN 7.5 MG TABLET. PO ONE (16:00)
[2017-01-12] MEDS: VANCOMYCIN 1.25 GM in IV NORMAL SALINE 250ML 250 ML IV SCH ×3 (17:30→21:00)
[2017-01-12 19:06] VITALS: BP 157/90
[2017-01-12 19:40] LABS: VANC TR 14.4 mcg/mL (10.0-20.0)
[2017-01-12] MEDS: VANCOMYCIN PER PHARMACY MC PRN (20:26)
[2017-01-12] MEDS: ATORVASTATIN CALCIUM 10 MG TABLET. PO SCH (21:20)
[2017-01-12 22:45] VITALS: BP 158/94
[2017-01-13 05:09] VITALS: BP 150/89
[2017-01-13] MEDS: PREGABALIN 50 MG CAPSULE PO SCH ×2 (08:07→20:59)
[2017-01-13] MEDS: NICOTINE 14MG PATCH. TD SCH (08:07)
[2017-01-13] MEDS: ZINC SULFATE 220 MG CAPSULE. PO SCH (08:08)
[2017-01-13] MEDS: DULoxetine HCL 30 MG CAPSULE.DR PO SCH (08:08)
[2017-01-13] MEDS: ASCORBIC ACID 500 MG TABLET PO SCH (08:08)
[2017-01-13] MEDS: ASPIRIN 325 MG TABLET PO SCH (08:08)
[2017-01-13] MEDS: PRENATAL MULTIVITAMIN TABLET. PO SCH (08:08)
[2017-01-13] MEDS: PANTOPRAZOLE 40 MG TABLET. PO SCH (08:08)
[2017-01-13] MEDS: LOSARTAN 50 MG TABLET. PO SCH (08:08)
[2017-01-13] MEDS: INSULIN DETEMIR 300 UNITS/3 ML INSULN.PEN. SQ SCH ×2 (08:18→20:59)
[2017-01-13] MEDS: INSULIN ASPART 300 UNITS/3 ML INSULN.PEN SQ SCH ×3 (08:18→17:28)
[2017-01-13] MEDS ORDERED: ALBENDAZOLE PO ONE ×2 (09:00→12:00)
[2017-01-13] MEDS ORDERED: ALBENDAZOLE 200 MG ONE (11:00)
[2017-01-13 11:03] VITALS: BP 160/99
[2017-01-13] MEDS: LISINOPRIL 20 MG TABLET PO SCH (12:06)
[2017-01-13 15:29] VITALS: BP 114/69
[2017-01-13] MEDS ORDERED: WARFARIN 7.5 MG TABLET. PO ONE (16:00)
[2017-01-13 18:08] VITALS: BP 135/82
--- NOTE | 2017-01-13 18:09 | PDOC ---
Exam David Demential Exam: David Note: Please also refer to the separate dictated note~for this date of service dictated separately.~Patient seen individually. Discussed the patient with Nursing staff reviewed the chart.~Reviewed interim history and current functioning. Reviewed vital signs,~Labs/ Radiology~and current medications noted below. Continue current treatment with the changes noted in the dictated addendum note Assessment: Vital Signs: Vital Signs Date Time Temp Pulse Resp B/P (MAP) Pulse Ox O2 Delivery O2 Flow Rate FiO2 01/13/17 18:08 97.7 92 18 135/82 (99) 97 Room Air I&O Intake and Output 01/14/17 06:59 Intake Total 1305 ml Balance 1305 ml Intake Oral 1305 ml Labs: Laboratory Tests Test 01/12/17 19:10 01/12/17 19:15 01/13/17 05:40 01/13/17 07:44 Glucose (Fingerstick) 316 mg/dL (70-99) H 203 mg/dL (70-99) H Vancomycin Level Trough 14.4 mcg/mL (10.0-20.0) Vancomycin Last Dose Date 01/11/17 Vancomycin Last Dose Time 1730 Prothrombin Time 13.2 SEC (9.4-11.4) H Prothrombin Time INR 1.3 (0.9-1.1) H Test 01/13/17 11:21 01/13/17 17:02 Glucose (Fingerstick) 238 mg/dL (70-99) H 222 mg/dL (70-99) H Current Medications: Meds: Current Medications Ondansetron HCl (Zofran) 4 mg 1X ONCE IV Last administered on 01/10/17 08:40 ; Start 01/10/17 at 08:00; Stop 01/10/17 at 08:03; Status DC Sodium Chloride 1,000 ml @ 1,000 mls/hr 1X ONCE IV Last administered on 01/10 08:40; Start 01/10/17 at 08:00; Stop 01/10/17 at 08:59; Status DC Silver Sulfadiazine (Silvadene) 1 jasmeet 1X ONCE TP Last administered on 09:35; Start 01/10/17 at 09:30; Stop 01/10/17 at 09:32; Status DC Potassium Chloride (Klor-Con) 40 meq 1X ONCE PO Last administered on 10:00; Start 01/10/17 at 10:00; Stop 01/10/17 at 10:01; Status DC Ondansetron HCl (Zofran) 4 mg PRN Q4HRS PRN IV NAUSEA/VOMITING; Start at 10:00; Stop 01/11/17 at 09:59; Status DC Diphtheria/ Tetanus/Acell Pertussis (Boostrix) 0.5 ml ONCE ONCE VAX IM Last administered on 01/10/17 10:48; Start 01/10/17 at 10:15; Stop 01/10/17 at 10 :16; Status DC Insulin Aspart (NovoLOG) 15 units 1X ONCE SQ Last administered on 01/10/17 13:42; Start 01/10/17 at 13:30; Stop 01/10/17 at 13:31; Status DC Potassium Chloride (Klor-Con) 40 meq 1X ONCE PO Last administered on 13:35; Start 01/10/17 at 13:30; Stop 01/10/17 at 13:31; Status DC Aspirin (Lalita Aspirin) 325 mg DAILY PO Last administered on 01/13/17 08:08; Start 01/11/17 at 09:00 Atorvastatin Calcium (Lipitor) 10 mg QHS PO Last administered on 01/12/17 21: 20; Start 01/10/17 at 21:00 Pregabalin (Lyrica) 50 mg BID PO Last administered on 01/13/17 08:07; Start 01/10/17 at 21:00 Tramadol HCl (Ultram) 50 mg PRN Q6HRS PRN PO PAIN Last administered on 11:13; Start 01/10/17 at 15:15 Warfarin Sodium (Coumadin) 6 mg DAILY16 PO Last administered on 01/10/17 22: 12; Start 01/10/17 at 17:15; Stop 01/11/17 at 15:10; Status DC Insulin Detemir (Levemir) 20 units QHS SQ Last administered on 01/12/17 21:19 ; Start 01/10/17 at 21:00 Insulin Aspart (NovoLOG) 13 units BIDBFRMEAL SQ Last administered on 01/13/17 08:18; Start 01/10/17 at 16:30; Stop 01/13/17 at 10:29; Status DC Losartan Potassium (Cozaar) 100 mg DAILY PO Last administered on 01/13/17 08: 08; Start 01/11/17 at 09:00 Warfarin Sodium (Coumadin Per Pharmacy) 1 each PRN DAILY PRN MC SEE COMMENTS Last administered on 01/13/17 13:49; Start 01/10/17 at 15:45 Potassium Chloride/Sodium Chloride 1,000 ml @ 100 mls/hr Q10H IV Last administered on 01/12/17 06:08; Start 01/10/17 at 16:45; Stop 01/12/17 at 15: 32; Status DC Vancomycin HCl (Vanco Per Pharmacy) 1 each PRN DAILY PRN MC SEE COMMENTS Last administered on 01/12/17 20:26; Start 01/10/17 at 16:30 Ascorbic Acid (Vitamin C) 1,000 mg DAILY PO Last administered on 01/13/17 08: 08; Start 01/10/17 at 16:45 Zinc Sulfate (Orazinc) 220 mg DAILY PO Last administered on 01/13/17 08:08; Start 01/10/17 at 16:45 Nicotine (Nicoderm Cq 14mg) 1 patch DAILY TD Last administered on 01/13/17 08: 07; Start 01/10/17 at 16:45 Vancomycin HCl 2 gm/Sodium Chloride 500 ml @ 250 mls/hr 1X ONCE IV Last administered on 01/10/17 19:15; Start 01/10/17 at 17:00; Stop 01/10/17 at 18 :59; Status DC Vancomycin HCl 1.25 gm/Sodium Chloride 250 ml @ 167 mls/hr Q24H IV Last administered on 01/11/17 18:02; Start 01/11/17 at 17:30; Stop 01/12/17 at 20:58 ; Status DC Vancomycin HCl 1 each 1X ONCE MC Last administered on 01/12/17 17:00; Start 01/12/17 at 17:00; Stop 01/12/17 at 17:01; Status DC Pregabalin (Lyrica) 50 mg STK-MED ONCE .ROUTE ; Start 01/10/17 at 22:22; Stop 01/10/17 at 22:23; Status DC Potassium Chloride/Sodium Chloride 1,000 ml @ As Directed STK-MED ONCE IV ; Start 01/11/17 at 06:08; Stop 01/11/17 at 06:09; Status DC Zinc Sulfate (Orazinc) 220 mg STK-MED ONCE PO ; Start 01/11/17 at 08:38; Stop 01/11/17 at 08:39; Status DC Aspirin (Lalita Aspirin) 325 mg STK-MED ONCE .ROUTE ; Start 01/11/17 at 08:38; Stop 01/11/17 at 08:39; Status DC Nicotine (Nicoderm Cq 14mg) 1 patch STK-MED ONCE TD ; Start 01/11/17 at 08:38; Stop 01/11/17 at 08:39; Status DC Ascorbic Acid (Vitamin C) 500 mg STK-MED ONCE .ROUTE ; Start 01/11/17 at 08:39; Stop 01/11/17 at 08:40; Status DC Losartan Potassium (Cozaar) 50 mg STK-MED ONCE .ROUTE ; Start 01/11/17 at 08:39 ; Stop 01/11/17 at 08:40; Status DC Pregabalin (Lyrica) 150 mg STK-MED ONCE .ROUTE Last administered on 01/11/17 08:51; Start 01/11/17 at 08:39; Stop 01/11/17 at 08:40; Status DC Iohexol (Omnipaque 300 Mg/ml) 75 ml 1X ONCE IV ; Start 01/11/17 at 09:00; Stop 01/11/17 at 09:08; Status DC Insulin Aspart (NovoLOG) 13 units DAILYBFRLUN SQ Last administered on 11:47; Start 01/11/17 at 11:30; Stop 01/12/17 at 07:57; Status DC Insulin Detemir (Levemir) 4 units DAILY08 SQ Last administered on 01/13/17 08: 18; Start 01/12/17 at 08:00 Potassium Chloride/Sodium Chloride 1,000 ml @ As Directed STK-MED ONCE IV ; Start 01/11/17 at 11:40; Stop 01/11/17 at 11:41; Status DC Clonidine HCl (Catapres) 0.1 mg 1X ONCE PO Last administered on 01/11/17 12: 30; Start 01/11/17 at 12:30; Stop 01/11/17 at 12:31; Status DC Clonidine HCl (Catapres) 0.1 mg PRN Q1HR PRN PO HYPERTENSION, SEE COMMENTS; Start 01/11/17 at 12:00 Warfarin Sodium (Coumadin) 7.5 mg 1X WARF ONCE PO Last administered on 16:02; Start 01/11/17 at 16:00; Stop 01/11/17 at 16:01; Status DC Insulin Aspart (NovoLOG) 15 units DAILYBFRLUN SQ Last administered on 12:09; Start 01/12/17 at 11:30 Duloxetine HCl (Cymbalta) 30 mg DAILY PO Last administered on 01/13/17 08:08; Start 01/12/17 at 09:00 Prenat Multivit/ Sales Project Coordinator/Iron/Folic Ac (Multivitamin ) 1 tab DAILY PO Last administered on 01/13/17 08:08; Start 01/12/17 at 10:00 Pantoprazole Sodium (Protonix) 40 mg DAILYAC PO Last administered on 01/13/17 08:08; Start 01/12/17 at 10:00 Loperamide HCl (Imodium) 2 mg Q2HR PRN PO DIARRHEA; Start 01/12/17 at 09:45 Loperamide HCl (Imodium) 2 mg 1X ONCE PO Last administered on 01/12/17 10:00 ; Start 01/12/17 at 09:45; Stop 01/12/17 at 09:46; Status DC Warfarin Sodium (Coumadin) 7.5 mg 1X WARF ONCE PO Last administered on 17:05; Start 01/12/17 at 16:00; Stop 01/12/17 at 16:02; Status DC Non-Formulary Medication 1 ea 1X ONCE PO ; Start 01/13/17 at 09:00; Stop at 09:01; Status Cancel Vancomycin HCl 1.25 gm/Sodium Chloride 250 ml @ 167 mls/hr Q24H IV Last administered on 01/12/17 21:00; Start 01/12/17 at 21:00 Non-Formulary Medication 1 ea 1X ONCE PO Last administered on 01/13/17 11:14 ; Start 01/13/17 at 12:00; Stop 01/13/17 at 12:01; Status DC Insulin Aspart (NovoLOG) 15 units BIDBFRMEAL SQ Last administered on 01/13/17 17:28; Start 01/13/17 at 16:30 Lisinopril (Prinivil) 20 mg DAILY PO Last administered on 01/13/17 12:06; Start 01/13/17 at 12:00 Warfarin Sodium (Coumadin) 7.5 mg 1X WARF ONCE PO Last administered on 17:25; Start 01/13/17 at 16:00; Stop 01/13/17 at 16:01; Status DC Active Scripts Active Reported Losartan Potassium 100 Mg Tablet 100 Mg PO DAILY Lipitor (Atorvastatin Calcium) 10 Mg Tablet 1 Tab PO QHS Aspirin 325 Mg Tablet 1 Tab PO DAILY Tramadol Hcl (Tramadol HCl) 50 Mg Tablet 50 Mg PO PRN Q6HRS PRN Humalog (Insulin Lispro) 100 Unit/1 Ml Vial 13 Unit SQ BIDWMEALS Coumadin (Warfarin Sodium) 6 Mg Tablet 1 Tab PO DAILY Lyrica (Pregabalin) 50 Mg Capsule 1 Cap PO BID Lantus Solostar (Insulin Glargine,Hum.rec.anlog) 100 Unit/1 Ml Insuln.pen 20 Unit SQ QHS Diagnosis: Problems: (1) Major depressive disorder, recurrent episode (2) Anxiety disorder (3) Amphetamine use disorder, moderate JORY LOPEZ MD Jan 13, 2017 18:09
[2017-01-13] MEDS: VANCOMYCIN 1.25 GM in IV NORMAL SALINE 250ML 250 ML IV SCH (20:58)
[2017-01-13] MEDS: ATORVASTATIN CALCIUM 10 MG TABLET. PO SCH (20:58)
[2017-01-13 23:20] VITALS: BP 130/84
[2017-01-14 05:00] VITALS: BP 145/85
[2017-01-14 06:47] LABS: BASO # 0.1 x10^3/uL (0.0-0.2); BASO % 2 % (0-3); EOS # 0.2 x10^3/uL (0.0-0.7); EOS % 3 % (0-3); HEMATOCRIT 34.4 % (36.0-47.0); HEMOGLOBIN 11.5 g/dL (12.0-15.5); LYMPH # 1.8 x10^3/uL (1.0-4.8); LYMPH % 26 % (24-48); MEAN CORPUSCULAR HEMOGLOBIN 29 pg (25-35); MEAN CORPUSCULAR HGB CONC 33 g/dL (31-37); MEAN CORPUSCULAR VOLUME 86 fL (79-100); MONO # 0.5 x10^3/uL (0.0-1.1); MONO % 7 % (0-9); NEUT # 4.6 x10^3uL (1.8-7.7); NEUT % 64 % (31-73); PLATELET COUNT 349 x10^3/uL (140-400); RED BLOOD COUNT 3.98 x10^6/uL (3.50-5.40); WHITE BLOOD COUNT 7.2 x10^3/uL (4.0-11.0)
[2017-01-14 07:11] LABS: ALBUMIN 1.4 g/dL (3.4-5.0); ALBUMIN/GLOBULIN RATIO 0.4 (1.0-1.7); CALCIUM 8.2 mg/dL (8.5-10.1); CREATININE 1.4 mg/dL (0.6-1.0); GFR 39.8; MAGNESIUM 1.8 mg/dL (1.8-2.4); POTASSIUM 4.5 mmol/L (3.5-5.1); TOTAL BILIRUBIN 0.2 mg/dL (0.2-1.0); TOTAL PROTEIN 4.6 g/dL (6.4-8.2)
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
--- NOTE | 2017-01-14 08:08 | PN ---
DATE: 01/12/2017 This late entry, date of service, 01/12/2017, covers elements not covered in my initial note of 01/12/2017. SUBJECTIVE: Met with the patient the evening of 01/12/2017. The patient remains somewhat withdrawn, tired, sleepy, but it appears this is part of her coming off the methamphetamines. She is also eating increased amount of snacks probably for similar reasons. REVIEW OF SYSTEMS: No CV, , pulmonary, eye, ENT system symptoms on review. MENTAL STATUS EXAM: Oriented reasonably to herself and situation. Speech has some latency, coherent, often responses monosyllabic, somewhat irritable, labile as I met with her and processed outpatient treatment options and her current antidepressants. No active suicidal or homicidal ideation. Insight limited regarding her methamphetamine abuse. IMPRESSION: Unchanged from initial note. PLAN: No change from a psychiatric standpoint. Continue current psychotropics mentioned in my initial note and adjust further as clinically indicated. JORY LOPEZ MD DR: JAMIE/geneva JOB#: [id number] / [id number]
[2017-01-14] MEDS: ASCORBIC ACID 500 MG TABLET PO SCH (08:43)
[2017-01-14] MEDS: LOSARTAN 50 MG TABLET. PO SCH (08:43)
[2017-01-14] MEDS: ZINC SULFATE 220 MG CAPSULE. PO SCH (08:44)
[2017-01-14] MEDS: DULoxetine HCL 30 MG CAPSULE.DR PO SCH (08:44)
[2017-01-14] MEDS: PREGABALIN 50 MG CAPSULE PO SCH ×2 (08:44→19:44)
[2017-01-14] MEDS: ASPIRIN 325 MG TABLET PO SCH (08:44)
[2017-01-14] MEDS: PANTOPRAZOLE 40 MG TABLET. PO SCH (08:44)
[2017-01-14] MEDS: NICOTINE 14MG PATCH. TD SCH (08:44)
[2017-01-14] MEDS: LISINOPRIL 20 MG TABLET PO SCH (08:44)
[2017-01-14] MEDS: PRENATAL MULTIVITAMIN TABLET. PO SCH (08:51)
[2017-01-14] MEDS: INSULIN DETEMIR 300 UNITS/3 ML INSULN.PEN. SQ SCH ×2 (08:53→20:12)
[2017-01-14] MEDS: INSULIN ASPART 300 UNITS/3 ML INSULN.PEN SQ SCH ×3 (08:54→17:17)
[2017-01-14 10:49] VITALS: BP 122/77
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
[2017-01-14 14:35] VITALS: BP 138/86
[2017-01-14] MEDS ORDERED: WARFARIN 7.5 MG TABLET. PO ONE (16:00)
[2017-01-14 19:27] VITALS: BP 149/89
[2017-01-14] MEDS: ATORVASTATIN CALCIUM 10 MG TABLET. PO SCH (19:43)
[2017-01-14] MEDS: VANCOMYCIN 1.25 GM in IV NORMAL SALINE 250ML 250 ML IV SCH (19:44)
--- NOTE | 2017-01-14 20:45 | PN ---
DATE: 01/13/2017 PSYCHIATRIC PROGRESS NOTE This is a late entry for date of service 01/13/2017, covers the elements not covered in my initial note of 01/13/2017. SUBJECTIVE: I met with the patient evening of 01/13/2017. Per nursing report, she remains somewhat withdrawn, tired during the day. Still somewhat dysphoric, but no suicidal ideation noted. During the individual visit, she had many questions about living arrangements post-discharge since she is homeless. She is wanting to live in the [facility] and we discussed [facility] as options and for her to discuss with Rukhsana Garcia, behavioral health case manager. REVIEW OF SYSTEMS: No CV, , pulmonary, eye system symptoms on review. Admits to being tired, still eating snacks frequently as she comes off the methamphetamine. MENTAL STATUS EXAM: Reasonably oriented. Speech is coherent, abstraction fair, computation somewhat impaired, attention span short. Mood and affect is bright, dysphoric, slightly improved. No suicidal ideation. No psychotic symptoms, no homicidal ideation. LABORATORY DATA: Reviewed. IMPRESSION: Unchanged from initial note. PLAN: Continue current psychotropics mentioned in my initial note. Reviewed drug interactions, risk/benefit ratio favors no further change. JORY LOPEZ MD DR: JAMIE/geneva JOB#: [id number] / [id number]
[2017-01-14 23:10] VITALS: BP 147/68
--- NOTE | 2017-01-14 23:38 | PDOC ---
Exam David Demential Exam: David Note: Please also refer to the separate dictated note~for this date of service dictated separately.~Patient seen individually. Discussed the patient with Nursing staff reviewed the chart.~Reviewed interim history and current functioning. Reviewed vital signs,~Labs/ Radiology~and current medications noted below. Continue current treatment with the changes noted in the dictated addendum note Assessment: Vital Signs: Vital Signs Date Time Temp Pulse Resp B/P (MAP) Pulse Ox O2 Delivery O2 Flow Rate FiO2 01/14/17 23:10 62 16 147/68 (94) 91 Room Air 01/14/17 19:27 98.1 I&O Intake and Output 01/15/17 07:00 Intake Total 1940 ml Balance 1940 ml Intake Oral 1940 ml # Voids 4 Labs: Laboratory Tests Test 01/14/17 06:15 01/14/17 07:23 01/14/17 11:40 01/14/17 16:32 White Blood Count 7.2 x10^3/uL (4.0-11.0) Red Blood Count 3.98 x10^6/uL (3.50-5.40) Hemoglobin 11.5 g/dL (12.0-15.5) L Hematocrit 34.4 % (36.0-47.0) L Mean Corpuscular Volume 86 fL (79-100) Mean Corpuscular Hemoglobin 29 pg (25-35) Mean Corpuscular Hemoglobin Concent 33 g/dL (31-37) Red Cell Distribution Width 16.0 % (11.5-14.5) H Platelet Count 349 x10^3/uL (140-400) Neutrophils (%) (Auto) 64 % (31-73) Lymphocytes (%) (Auto) 26 % (24-48) Monocytes (%) (Auto) 7 % (0-9) Eosinophils (%) (Auto) 3 % (0-3) Basophils (%) (Auto) 2 % (0-3) Neutrophils # (Auto) 4.6 x10^3uL (1.8-7.7) Lymphocytes # (Auto) 1.8 x10^3/uL (1.0-4.8) Monocytes # (Auto) 0.5 x10^3/uL (0.0-1.1) Eosinophils # (Auto) 0.2 x10^3/uL (0.0-0.7) Basophils # (Auto) 0.1 x10^3/uL (0.0-0.2) Prothrombin Time 14.9 SEC (9.4-11.4) H Prothrombin Time INR 1.5 (0.9-1.1) H Sodium Level 139 mmol/L (136-145) Potassium Level 4.5 mmol/L (3.5-5.1) Chloride Level 109 mmol/L (98-107) H Carbon Dioxide Level 24 mmol/L (21-32) Anion Gap 6 (6-14) Blood Urea Nitrogen 32 mg/dL (7-20) H Creatinine 1.4 mg/dL (0.6-1.0) H Estimated GFR (Cockcroft-Gault) 39.8 BUN/Creatinine Ratio 23 (6-20) H Glucose Level 254 mg/dL (70-99) H Calcium Level 8.2 mg/dL (8.5-10.1) L Magnesium Level 1.8 mg/dL (1.8-2.4) Total Bilirubin 0.2 mg/dL (0.2-1.0) Aspartate Amino Transferase (AST) 20 U/L (15-37) Alanine Aminotransferase (ALT) 20 U/L (14-59) Alkaline Phosphatase 113 U/L (46-116) Total Protein 4.6 g/dL (6.4-8.2) L Albumin 1.4 g/dL (3.4-5.0) L Albumin/Globulin Ratio 0.4 (1.0-1.7) L Glucose (Fingerstick) 205 mg/dL (70-99) H 185 mg/dL (70-99) H 192 mg/dL (70-99) H Test 01/14/17 19:40 Glucose (Fingerstick) 226 mg/dL (70-99) H Current Medications: Meds: Current Medications Ondansetron HCl (Zofran) 4 mg 1X ONCE IV Last administered on 01/10/17 08:40 ; Start 01/10/17 at 08:00; Stop 01/10/17 at 08:03; Status DC Sodium Chloride 1,000 ml @ 1,000 mls/hr 1X ONCE IV Last administered on 01/10 08:40; Start 01/10/17 at 08:00; Stop 01/10/17 at 08:59; Status DC Silver Sulfadiazine (Silvadene) 1 jasmeet 1X ONCE TP Last administered on 09:35; Start 01/10/17 at 09:30; Stop 01/10/17 at 09:32; Status DC Potassium Chloride (Klor-Con) 40 meq 1X ONCE PO Last administered on 10:00; Start 01/10/17 at 10:00; Stop 01/10/17 at 10:01; Status DC Ondansetron HCl (Zofran) 4 mg PRN Q4HRS PRN IV NAUSEA/VOMITING; Start at 10:00; Stop 01/11/17 at 09:59; Status DC Diphtheria/ Tetanus/Acell Pertussis (Boostrix) 0.5 ml ONCE ONCE VAX IM Last administered on 01/10/17 10:48; Start 01/10/17 at 10:15; Stop 01/10/17 at 10 :16; Status DC Insulin Aspart (NovoLOG) 15 units 1X ONCE SQ Last administered on 01/10/17 13:42; Start 01/10/17 at 13:30; Stop 01/10/17 at 13:31; Status DC Potassium Chloride (Klor-Con) 40 meq 1X ONCE PO Last administered on 13:35; Start 01/10/17 at 13:30; Stop 01/10/17 at 13:31; Status DC Aspirin (Lalita Aspirin) 325 mg DAILY PO Last administered on 01/14/17 08:44; Start 01/11/17 at 09:00 Atorvastatin Calcium (Lipitor) 10 mg QHS PO Last administered on 01/14/17 19: 43; Start 01/10/17 at 21:00 Pregabalin (Lyrica) 50 mg BID PO Last administered on 01/14/17 19:44; Start 01/10/17 at 21:00 Tramadol HCl (Ultram) 50 mg PRN Q6HRS PRN PO PAIN Last administered on 11:13; Start 01/10/17 at 15:15 Warfarin Sodium (Coumadin) 6 mg DAILY16 PO Last administered on 01/10/17 22: 12; Start 01/10/17 at 17:15; Stop 01/11/17 at 15:10; Status DC Insulin Detemir (Levemir) 20 units QHS SQ Last administered on 01/14/17 20:12 ; Start 01/10/17 at 21:00 Insulin Aspart (NovoLOG) 13 units BIDBFRMEAL SQ Last administered on 01/13/17 08:18; Start 01/10/17 at 16:30; Stop 01/13/17 at 10:29; Status DC Losartan Potassium (Cozaar) 100 mg DAILY PO Last administered on 01/14/17 08: 43; Start 01/11/17 at 09:00 Warfarin Sodium (Coumadin Per Pharmacy) 1 each PRN DAILY PRN MC SEE COMMENTS Last administered on 01/14/17 13:37; Start 01/10/17 at 15:45 Potassium Chloride/Sodium Chloride 1,000 ml @ 100 mls/hr Q10H IV Last administered on 01/12/17 06:08; Start 01/10/17 at 16:45; Stop 01/12/17 at 15: 32; Status DC Vancomycin HCl (Vanco Per Pharmacy) 1 each PRN DAILY PRN MC SEE COMMENTS Last administered on 01/12/17 20:26; Start 01/10/17 at 16:30 Ascorbic Acid (Vitamin C) 1,000 mg DAILY PO Last administered on 01/14/17 08: 43; Start 01/10/17 at 16:45 Zinc Sulfate (Orazinc) 220 mg DAILY PO Last administered on 01/14/17 08:44; Start 01/10/17 at 16:45 Nicotine (Nicoderm Cq 14mg) 1 patch DAILY TD Last administered on 01/14/17 08: 44; Start 01/10/17 at 16:45 Vancomycin HCl 2 gm/Sodium Chloride 500 ml @ 250 mls/hr 1X ONCE IV Last administered on 01/10/17 19:15; Start 01/10/17 at 17:00; Stop 01/10/17 at 18 :59; Status DC Vancomycin HCl 1.25 gm/Sodium Chloride 250 ml @ 167 mls/hr Q24H IV Last administered on 01/11/17 18:02; Start 01/11/17 at 17:30; Stop 01/12/17 at 20:58 ; Status DC Vancomycin HCl 1 each 1X ONCE MC Last administered on 01/12/17 17:00; Start 01/12/17 at 17:00; Stop 01/12/17 at 17:01; Status DC Pregabalin (Lyrica) 50 mg STK-MED ONCE .ROUTE ; Start 01/10/17 at 22:22; Stop 01/10/17 at 22:23; Status DC Potassium Chloride/Sodium Chloride 1,000 ml @ As Directed STK-MED ONCE IV ; Start 01/11/17 at 06:08; Stop 01/11/17 at 06:09; Status DC Zinc Sulfate (Orazinc) 220 mg STK-MED ONCE PO ; Start 01/11/17 at 08:38; Stop 01/11/17 at 08:39; Status DC Aspirin (Lalita Aspirin) 325 mg STK-MED ONCE .ROUTE ; Start 01/11/17 at 08:38; Stop 01/11/17 at 08:39; Status DC Nicotine (Nicoderm Cq 14mg) 1 patch STK-MED ONCE TD ; Start 01/11/17 at 08:38; Stop 01/11/17 at 08:39; Status DC Ascorbic Acid (Vitamin C) 500 mg STK-MED ONCE .ROUTE ; Start 01/11/17 at 08:39; Stop 01/11/17 at 08:40; Status DC Losartan Potassium (Cozaar) 50 mg STK-MED ONCE .ROUTE ; Start 01/11/17 at 08:39 ; Stop 01/11/17 at 08:40; Status DC Pregabalin (Lyrica) 150 mg STK-MED ONCE .ROUTE Last administered on 01/11/17 08:51; Start 01/11/17 at 08:39; Stop 01/11/17 at 08:40; Status DC Iohexol (Omnipaque 300 Mg/ml) 75 ml 1X ONCE IV ; Start 01/11/17 at 09:00; Stop 01/11/17 at 09:08; Status DC Insulin Aspart (NovoLOG) 13 units DAILYBFRLUN SQ Last administered on 11:47; Start 01/11/17 at 11:30; Stop 01/12/17 at 07:57; Status DC Insulin Detemir (Levemir) 4 units DAILY08 SQ Last administered on 01/14/17 08: 53; Start 01/12/17 at 08:00; Stop 01/14/17 at 11:00; Status DC Potassium Chloride/Sodium Chloride 1,000 ml @ As Directed STK-MED ONCE IV ; Start 01/11/17 at 11:40; Stop 01/11/17 at 11:41; Status DC Clonidine HCl (Catapres) 0.1 mg 1X ONCE PO Last administered on 01/11/17 12: 30; Start 01/11/17 at 12:30; Stop 01/11/17 at 12:31; Status DC Clonidine HCl (Catapres) 0.1 mg PRN Q1HR PRN PO HYPERTENSION, SEE COMMENTS; Start 01/11/17 at 12:00 Warfarin Sodium (Coumadin) 7.5 mg 1X WARF ONCE PO Last administered on 16:02; Start 01/11/17 at 16:00; Stop 01/11/17 at 16:01; Status DC Insulin Aspart (NovoLOG) 15 units DAILYBFRLUN SQ Last administered on 12:09; Start 01/12/17 at 11:30; Stop 01/14/17 at 11:00; Status DC Duloxetine HCl (Cymbalta) 30 mg DAILY PO Last administered on 01/14/17 08:44; Start 01/12/17 at 09:00 Prenat Multivit/ [place]/Iron/Folic Ac (Multivitamin ) 1 tab DAILY PO Last administered on 01/14/17 08:51; Start 01/12/17 at 10:00 Pantoprazole Sodium (Protonix) 40 mg DAILYAC PO Last administered on 01/14/17 08:44; Start 01/12/17 at 10:00 Loperamide HCl (Imodium) 2 mg Q2HR PRN PO DIARRHEA; Start 01/12/17 at 09:45 Loperamide HCl (Imodium) 2 mg 1X ONCE PO Last administered on 01/12/17 10:00 ; Start 01/12/17 at 09:45; Stop 01/12/17 at 09:46; Status DC Warfarin Sodium (Coumadin) 7.5 mg 1X WARF ONCE PO Last administered on 17:05; Start 01/12/17 at 16:00; Stop 01/12/17 at 16:02; Status DC Non-Formulary Medication 1 ea 1X ONCE PO ; Start 01/13/17 at 09:00; Stop at 09:01; Status Cancel Vancomycin HCl 1.25 gm/Sodium Chloride 250 ml @ 167 mls/hr Q24H IV Last administered on 01/14/17 19:44; Start 01/12/17 at 21:00 Non-Formulary Medication 1 ea 1X ONCE PO Last administered on 01/13/17 11:14 ; Start 01/13/17 at 12:00; Stop 01/13/17 at 12:01; Status DC Insulin Aspart (NovoLOG) 15 units BIDBFRMEAL SQ Last administered on 01/14/17 08:54; Start 01/13/17 at 16:30; Stop 01/14/17 at 11:00; Status DC Lisinopril (Prinivil) 20 mg DAILY PO Last administered on 01/14/17 08:44; Start 01/13/17 at 12:00 Warfarin Sodium (Coumadin) 7.5 mg 1X WARF ONCE PO Last administered on 17:25; Start 01/13/17 at 16:00; Stop 01/13/17 at 16:01; Status DC Vancomycin HCl 1 each 1X ONCE MC ; Start 01/16/17 at 20:30; Stop 01/16/17 at 20 :31 Insulin Aspart (NovoLOG) 17 units DAILYBFRLUN SQ Last administered on 12:19; Start 01/14/17 at 11:30 Insulin Aspart (NovoLOG) 17 units BIDBFRMEAL SQ Last administered on 01/14/17 17:17; Start 01/14/17 at 16:30 Insulin Detemir (Levemir) 6 units DAILY08 SQ ; Start 01/15/17 at 08:00 Warfarin Sodium (Coumadin) 7.5 mg 1X WARF ONCE PO Last administered on 17:15; Start 01/14/17 at 16:00; Stop 01/14/17 at 16:01; Status DC Active Scripts Active Reported Losartan Potassium 100 Mg Tablet 100 Mg PO DAILY Lipitor (Atorvastatin Calcium) 10 Mg Tablet 1 Tab PO QHS Aspirin 325 Mg Tablet 1 Tab PO DAILY Tramadol Hcl (Tramadol HCl) 50 Mg Tablet 50 Mg PO PRN Q6HRS PRN Humalog (Insulin Lispro) 100 Unit/1 Ml Vial 13 Unit SQ BIDWMEALS Coumadin (Warfarin Sodium) 6 Mg Tablet 1 Tab PO DAILY Lyrica (Pregabalin) 50 Mg Capsule 1 Cap PO BID Lantus Solostar (Insulin Glargine,Hum.rec.anlog) 100 Unit/1 Ml Insuln.pen 20 Unit SQ QHS Diagnosis: Problems: (1) Anxiety disorder (2) Major depressive disorder, recurrent episode (3) Amphetamine use disorder, moderate (4) Substance abuse JORY LOPEZ MD Jan 14, 2017 23:38
[2017-01-15 04:52] VITALS: BP 147/68
[2017-01-15 07:06] LABS: BASO # 0.1 x10^3/uL (0.0-0.2); BASO % 1 % (0-3); EOS # 0.2 x10^3/uL (0.0-0.7); EOS % 3 % (0-3); HEMATOCRIT 36.7 % (36.0-47.0); HEMOGLOBIN 12.2 g/dL (12.0-15.5); LYMPH # 1.6 x10^3/uL (1.0-4.8); LYMPH % 21 % (24-48); MEAN CORPUSCULAR HEMOGLOBIN 28 pg (25-35); MEAN CORPUSCULAR HGB CONC 33 g/dL (31-37); MEAN CORPUSCULAR VOLUME 85 fL (79-100); MONO # 0.6 x10^3/uL (0.0-1.1); MONO % 8 % (0-9); NEUT # 5.1 x10^3uL (1.8-7.7); NEUT % 67 % (31-73); PLATELET COUNT 362 x10^3/uL (140-400); RED BLOOD COUNT 4.31 x10^6/uL (3.50-5.40); WHITE BLOOD COUNT 7.5 x10^3/uL (4.0-11.0)
[2017-01-15 07:21] LABS: ALBUMIN 1.4 g/dL (3.4-5.0); ALBUMIN/GLOBULIN RATIO 0.3 (1.0-1.7); CALCIUM 8.5 mg/dL (8.5-10.1); CREATININE 1.3 mg/dL (0.6-1.0); GFR 43.4; POTASSIUM 4.4 mmol/L (3.5-5.1); TOTAL BILIRUBIN 0.3 mg/dL (0.2-1.0); TOTAL PROTEIN 5.5 g/dL (6.4-8.2)
[2017-01-15] MEDS ORDERED: INSULIN DETEMIR 300 UNITS/3 ML INSULN.PEN. SQ SCH (08:00)
[2017-01-15] MEDS: PRENATAL MULTIVITAMIN TABLET. PO SCH (08:15)
[2017-01-15] MEDS: ASPIRIN 325 MG TABLET PO SCH (08:15)
[2017-01-15] MEDS: ASCORBIC ACID 500 MG TABLET PO SCH (08:16)
[2017-01-15] MEDS: LISINOPRIL 20 MG TABLET PO SCH (08:16)
[2017-01-15] MEDS: LOSARTAN 50 MG TABLET. PO SCH (08:16)
[2017-01-15] MEDS: PANTOPRAZOLE 40 MG TABLET. PO SCH (08:16)
[2017-01-15] MEDS: ZINC SULFATE 220 MG CAPSULE. PO SCH (08:17)
[2017-01-15] MEDS: DULoxetine HCL 30 MG CAPSULE.DR PO SCH (08:17)
[2017-01-15] MEDS: NICOTINE 14MG PATCH. TD SCH (08:17)
[2017-01-15] MEDS: PREGABALIN 50 MG CAPSULE PO SCH (08:18)
[2017-01-15] MEDS: INSULIN ASPART 300 UNITS/3 ML INSULN.PEN SQ SCH ×2 (08:24→12:21)
[2017-01-15] MEDS: VANCOMYCIN PER PHARMACY MC PRN (08:25)
[2017-01-15 10:36] VITALS: BP 123/81
[2017-01-15] MEDS ORDERED: METO25TA4 PO (13:11)
[2017-01-15] MEDS ORDERED: INSU100V SQ (13:12)
[2017-01-15] MEDS ORDERED: ASPI325T8 PO (13:12)
[2017-01-15] MEDS ORDERED: INSU100I13 SQ (13:12)
[2017-01-15] MEDS ORDERED: LOSA100T6 PO (13:12)
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
[2017-01-15] MEDS ORDERED: DULO30CA2 PO (13:32)
[2017-01-15] MEDS ORDERED: WARFARIN 7.5 MG TABLET. PO ONE (16:00)
--- NOTE | 2017-01-15 17:34 | PDOC ---
Exam David Demential Exam: David Note: Please also refer to the separate dictated note~for this date of service dictated separately.~Patient seen individually. Discussed the patient with Nursing staff reviewed the chart.~Reviewed interim history and current functioning. Reviewed vital signs,~Labs/ Radiology~and current medications noted below. Continue current treatment with the changes noted in the dictated addendum note Assessment: Vital Signs: Vital Signs Date Time Temp Pulse Resp B/P (MAP) Pulse Ox O2 Delivery O2 Flow Rate FiO2 01/15/17 10:36 99.0 96 20 123/81 (95) 94 Room Air I&O Intake and Output 01/16/17 07:00 Intake Total 960 ml Balance 960 ml Intake Oral 960 ml Labs: Laboratory Tests Test 01/14/17 19:40 01/15/17 06:30 01/15/17 07:25 01/15/17 11:25 Glucose (Fingerstick) 226 mg/dL (70-99) H 235 mg/dL (70-99) H 333 mg/dL (70-99) H White Blood Count 7.5 x10^3/uL (4.0-11.0) Red Blood Count 4.31 x10^6/uL (3.50-5.40) Hemoglobin 12.2 g/dL (12.0-15.5) Hematocrit 36.7 % (36.0-47.0) Mean Corpuscular Volume 85 fL (79-100) Mean Corpuscular Hemoglobin 28 pg (25-35) Mean Corpuscular Hemoglobin Concent 33 g/dL (31-37) Red Cell Distribution Width 16.0 % (11.5-14.5) H Platelet Count 362 x10^3/uL (140-400) Neutrophils (%) (Auto) 67 % (31-73) Lymphocytes (%) (Auto) 21 % (24-48) L Monocytes (%) (Auto) 8 % (0-9) Eosinophils (%) (Auto) 3 % (0-3) Basophils (%) (Auto) 1 % (0-3) Neutrophils # (Auto) 5.1 x10^3uL (1.8-7.7) Lymphocytes # (Auto) 1.6 x10^3/uL (1.0-4.8) Monocytes # (Auto) 0.6 x10^3/uL (0.0-1.1) Eosinophils # (Auto) 0.2 x10^3/uL (0.0-0.7) Basophils # (Auto) 0.1 x10^3/uL (0.0-0.2) Prothrombin Time 16.1 SEC (9.4-11.4) H Prothrombin Time INR 1.6 (0.9-1.1) H Sodium Level 139 mmol/L (136-145) Potassium Level 4.4 mmol/L (3.5-5.1) Chloride Level 105 mmol/L (98-107) Carbon Dioxide Level 26 mmol/L (21-32) Anion Gap 8 (6-14) Blood Urea Nitrogen 37 mg/dL (7-20) H Creatinine 1.3 mg/dL (0.6-1.0) H Estimated GFR (Cockcroft-Gault) 43.4 BUN/Creatinine Ratio 28 (6-20) H Glucose Level 238 mg/dL (70-99) H Calcium Level 8.5 mg/dL (8.5-10.1) Total Bilirubin 0.3 mg/dL (0.2-1.0) Aspartate Amino Transferase (AST) 27 U/L (15-37) Alanine Aminotransferase (ALT) 23 U/L (14-59) Alkaline Phosphatase 102 U/L (46-116) Total Protein 5.5 g/dL (6.4-8.2) L Albumin 1.4 g/dL (3.4-5.0) L Albumin/Globulin Ratio 0.3 (1.0-1.7) L Current Medications: Meds: Current Medications Ondansetron HCl (Zofran) 4 mg 1X ONCE IV Last administered on 01/10/17 08:40 ; Start 01/10/17 at 08:00; Stop 01/10/17 at 08:03; Status DC Sodium Chloride 1,000 ml @ 1,000 mls/hr 1X ONCE IV Last administered on 01/10 08:40; Start 01/10/17 at 08:00; Stop 01/10/17 at 08:59; Status DC Silver Sulfadiazine (Silvadene) 1 jasmeet 1X ONCE TP Last administered on 09:35; Start 01/10/17 at 09:30; Stop 01/10/17 at 09:32; Status DC Potassium Chloride (Klor-Con) 40 meq 1X ONCE PO Last administered on 10:00; Start 01/10/17 at 10:00; Stop 01/10/17 at 10:01; Status DC Ondansetron HCl (Zofran) 4 mg PRN Q4HRS PRN IV NAUSEA/VOMITING; Start at 10:00; Stop 01/11/17 at 09:59; Status DC Diphtheria/ Tetanus/Acell Pertussis (Boostrix) 0.5 ml ONCE ONCE VAX IM Last administered on 01/10/17 10:48; Start 01/10/17 at 10:15; Stop 01/10/17 at 10 :16; Status DC Insulin Aspart (NovoLOG) 15 units 1X ONCE SQ Last administered on 01/10/17 13:42; Start 01/10/17 at 13:30; Stop 01/10/17 at 13:31; Status DC Potassium Chloride (Klor-Con) 40 meq 1X ONCE PO Last administered on 13:35; Start 01/10/17 at 13:30; Stop 01/10/17 at 13:31; Status DC Aspirin (Lalita Aspirin) 325 mg DAILY PO Last administered on 01/15/17 08:15; Start 01/11/17 at 09:00; Stop 01/15/17 at 15:27; Status DC Atorvastatin Calcium (Lipitor) 10 mg QHS PO Last administered on 01/14/17 19: 43; Start 01/10/17 at 21:00; Stop 01/15/17 at 15:27; Status DC Pregabalin (Lyrica) 50 mg BID PO Last administered on 01/15/17 08:18; Start 01/10/17 at 21:00; Stop 01/15/17 at 15:27; Status DC Tramadol HCl (Ultram) 50 mg PRN Q6HRS PRN PO PAIN Last administered on 11:13; Start 01/10/17 at 15:15; Stop 01/15/17 at 15:27; Status DC Warfarin Sodium (Coumadin) 6 mg DAILY16 PO Last administered on 01/10/17 22: 12; Start 01/10/17 at 17:15; Stop 01/11/17 at 15:10; Status DC Insulin Detemir (Levemir) 20 units QHS SQ Last administered on 01/14/17 20:12 ; Start 01/10/17 at 21:00; Stop 01/15/17 at 15:27; Status DC Insulin Aspart (NovoLOG) 13 units BIDBFRMEAL SQ Last administered on 01/13/17 08:18; Start 01/10/17 at 16:30; Stop 01/13/17 at 10:29; Status DC Losartan Potassium (Cozaar) 100 mg DAILY PO Last administered on 01/15/17 08: 16; Start 01/11/17 at 09:00; Stop 01/15/17 at 15:27; Status DC Warfarin Sodium (Coumadin Per Pharmacy) 1 each PRN DAILY PRN MC SEE COMMENTS Last administered on 01/15/17 08:14; Start 01/10/17 at 15:45; Stop 01/15/17 at 15:27; Status DC Potassium Chloride/Sodium Chloride 1,000 ml @ 100 mls/hr Q10H IV Last administered on 01/12/17 06:08; Start 01/10/17 at 16:45; Stop 01/12/17 at 15: 32; Status DC Vancomycin HCl (Vanco Per Pharmacy) 1 each PRN DAILY PRN MC SEE COMMENTS Last administered on 01/15/17 08:25; Start 01/10/17 at 16:30; Stop 01/15/17 at 15: 27; Status DC Ascorbic Acid (Vitamin C) 1,000 mg DAILY PO Last administered on 01/15/17 08: 16; Start 01/10/17 at 16:45; Stop 01/15/17 at 15:27; Status DC Zinc Sulfate (Orazinc) 220 mg DAILY PO Last administered on 01/15/17 08:17; Start 01/10/17 at 16:45; Stop 01/15/17 at 15:27; Status DC Nicotine (Nicoderm Cq 14mg) 1 patch DAILY TD Last administered on 01/15/17 08: 17; Start 01/10/17 at 16:45; Stop 01/15/17 at 15:27; Status DC Vancomycin HCl 2 gm/Sodium Chloride 500 ml @ 250 mls/hr 1X ONCE IV Last administered on 01/10/17 19:15; Start 01/10/17 at 17:00; Stop 01/10/17 at 18 :59; Status DC Vancomycin HCl 1.25 gm/Sodium Chloride 250 ml @ 167 mls/hr Q24H IV Last administered on 01/11/17 18:02; Start 01/11/17 at 17:30; Stop 01/12/17 at 20:58 ; Status DC Vancomycin HCl 1 each 1X ONCE MC Last administered on 01/12/17 17:00; Start 01/12/17 at 17:00; Stop 01/12/17 at 17:01; Status DC Pregabalin (Lyrica) 50 mg STK-MED ONCE .ROUTE ; Start 01/10/17 at 22:22; Stop 01/10/17 at 22:23; Status DC Potassium Chloride/Sodium Chloride 1,000 ml @ As Directed STK-MED ONCE IV ; Start 01/11/17 at 06:08; Stop 01/11/17 at 06:09; Status DC Zinc Sulfate (Orazinc) 220 mg STK-MED ONCE PO ; Start 01/11/17 at 08:38; Stop 01/11/17 at 08:39; Status DC Aspirin (Lalita Aspirin) 325 mg STK-MED ONCE .ROUTE ; Start 01/11/17 at 08:38; Stop 01/11/17 at 08:39; Status DC Nicotine (Nicoderm Cq 14mg) 1 patch STK-MED ONCE TD ; Start 01/11/17 at 08:38; Stop 01/11/17 at 08:39; Status DC Ascorbic Acid (Vitamin C) 500 mg STK-MED ONCE .ROUTE ; Start 01/11/17 at 08:39; Stop 01/11/17 at 08:40; Status DC Losartan Potassium (Cozaar) 50 mg STK-MED ONCE .ROUTE ; Start 01/11/17 at 08:39 ; Stop 01/11/17 at 08:40; Status DC Pregabalin (Lyrica) 150 mg STK-MED ONCE .ROUTE Last administered on 01/11/17 08:51; Start 01/11/17 at 08:39; Stop 01/11/17 at 08:40; Status DC Iohexol (Omnipaque 300 Mg/ml) 75 ml 1X ONCE IV ; Start 01/11/17 at 09:00; Stop 01/11/17 at 09:08; Status DC Insulin Aspart (NovoLOG) 13 units DAILYBFRLUN SQ Last administered on 11:47; Start 01/11/17 at 11:30; Stop 01/12/17 at 07:57; Status DC Insulin Detemir (Levemir) 4 units DAILY08 SQ Last administered on 01/14/17 08: 53; Start 01/12/17 at 08:00; Stop 01/14/17 at 11:00; Status DC Potassium Chloride/Sodium Chloride 1,000 ml @ As Directed STK-MED ONCE IV ; Start 01/11/17 at 11:40; Stop 01/11/17 at 11:41; Status DC Clonidine HCl (Catapres) 0.1 mg 1X ONCE PO Last administered on 01/11/17 12: 30; Start 01/11/17 at 12:30; Stop 01/11/17 at 12:31; Status DC Clonidine HCl (Catapres) 0.1 mg PRN Q1HR PRN PO HYPERTENSION, SEE COMMENTS; Start 01/11/17 at 12:00; Stop 01/15/17 at 15:27; Status DC Warfarin Sodium (Coumadin) 7.5 mg 1X WARF ONCE PO Last administered on 16:02; Start 01/11/17 at 16:00; Stop 01/11/17 at 16:01; Status DC Insulin Aspart (NovoLOG) 15 units DAILYBFRLUN SQ Last administered on 12:09; Start 01/12/17 at 11:30; Stop 01/14/17 at 11:00; Status DC Duloxetine HCl (Cymbalta) 30 mg DAILY PO Last administered on 01/15/17 08:17; Start 01/12/17 at 09:00; Stop 01/15/17 at 15:27; Status DC Prenat Multivit/ [place]/Iron/Folic Ac (Multivitamin ) 1 tab DAILY PO Last administered on 01/15/17 08:15; Start 01/12/17 at 10:00; Stop 01/15/17 at 15:27; Status DC Pantoprazole Sodium (Protonix) 40 mg DAILYAC PO Last administered on 01/15/17 08:16; Start 01/12/17 at 10:00; Stop 01/15/17 at 15:27; Status DC Loperamide HCl (Imodium) 2 mg Q2HR PRN PO DIARRHEA; Start 01/12/17 at 09:45; Stop 01/15/17 at 15:27; Status DC Loperamide HCl (Imodium) 2 mg 1X ONCE PO Last administered on 01/12/17 10:00 ; Start 01/12/17 at 09:45; Stop 01/12/17 at 09:46; Status DC Warfarin Sodium (Coumadin) 7.5 mg 1X WARF ONCE PO Last administered on 17:05; Start 01/12/17 at 16:00; Stop 01/12/17 at 16:02; Status DC Non-Formulary Medication 1 ea 1X ONCE PO ; Start 01/13/17 at 09:00; Stop at 09:01; Status Cancel Vancomycin HCl 1.25 gm/Sodium Chloride 250 ml @ 167 mls/hr Q24H IV Last administered on 01/14/17 19:44; Start 01/12/17 at 21:00; Stop 01/15/17 at 15:27 ; Status DC Non-Formulary Medication 1 ea 1X ONCE PO Last administered on 01/13/17 11:14 ; Start 01/13/17 at 12:00; Stop 01/13/17 at 12:01; Status DC Insulin Aspart (NovoLOG) 15 units BIDBFRMEAL SQ Last administered on 01/14/17 08:54; Start 01/13/17 at 16:30; Stop 01/14/17 at 11:00; Status DC Lisinopril (Prinivil) 20 mg DAILY PO Last administered on 01/15/17 08:16; Start 01/13/17 at 12:00; Stop 01/15/17 at 15:27; Status DC Warfarin Sodium (Coumadin) 7.5 mg 1X WARF ONCE PO Last administered on 17:25; Start 01/13/17 at 16:00; Stop 01/13/17 at 16:01; Status DC Vancomycin HCl 1 each 1X ONCE MC ; Start 01/16/17 at 20:30; Stop 01/16/17 at 20 :30; Status DC Insulin Aspart (NovoLOG) 17 units DAILYBFRLUN SQ Last administered on 12:21; Start 01/14/17 at 11:30; Stop 01/15/17 at 15:27; Status DC Insulin Aspart (NovoLOG) 17 units BIDBFRMEAL SQ Last administered on 01/15/17 08:24; Start 01/14/17 at 16:30; Stop 01/15/17 at 15:27; Status DC Insulin Detemir (Levemir) 6 units DAILY08 SQ Last administered on 01/15/17 08: 25; Start 01/15/17 at 08:00; Stop 01/15/17 at 15:27; Status DC Warfarin Sodium (Coumadin) 7.5 mg 1X WARF ONCE PO Last administered on 17:15; Start 01/14/17 at 16:00; Stop 01/14/17 at 16:01; Status DC Warfarin Sodium (Coumadin) 7.5 mg 1X WARF ONCE PO Last administered on 15:05; Start 01/15/17 at 16:00; Stop 01/15/17 at 16:00; Status DC Active Scripts Active Cymbalta (Duloxetine Hcl) 30 Mg Capsule.dr 30 Mg PO DAILY 30 Days Losartan Potassium 100 Mg Tablet 100 Mg PO DAILY 30 Days Aspirin 325 Mg Tablet 1 Tab PO DAILY Humalog (Insulin Lispro) 100 Unit/1 Ml Vial 15 Unit SQ TID WITH MEALS 30 Days PLEASE SUPPLE NEEDLES FOR INSULIN PEN Lantus Solostar (Insulin Glargine,Hum.rec.anlog) 100 Unit/1 Ml Insuln.pen 20 Unit SQ QHS 30 Days PLEASE SUPPLY NEEDLES FOR THE SOLOSTAR Reported Metoprolol Tartrate 25 Mg Tablet 25 Tab PO BID 30 Days Lipitor (Atorvastatin Calcium) 10 Mg Tablet 1 Tab PO QHS Coumadin (Warfarin Sodium) 6 Mg Tablet 1 Tab PO DAILY Diagnosis: Problems: (1) Substance abuse (2) Amphetamine use disorder, moderate (3) Major depressive disorder, recurrent episode (4) Anxiety disorder JORY LOPEZ MD Jan 15, 2017 17:34
--- NOTE | 2017-01-16 02:59 | PN ---
DATE: 01/14/2017 PSYCHIATRIC PROGRESS NOTE This is a late entry for 01/14/2017, covers the elements not covered in my initial note of 01/14/2017. SUBJECTIVE: Per nursing report, the patient remains somewhat withdrawn, eating excessively as she has come off the amphetamines. Still somewhat dysphoric, but no suicidal or homicidal ideation. MENTAL STATUS EXAM: Reasonably oriented. Speech is coherent. She had many questions about placement options and Rukhsana Garcia, telegraph office manager is addressing this. Addressed methamphetamine abuse and need to remain abstinent from this. No suicidal or homicidal ideation. LABORATORY DATA: Reviewed. This note covers the elements not covered in my initial note of 01/14/2017. I met with the patient the evening of 01/14/2017. IMPRESSION: Unchanged from initial note. PLAN: Continue psychotropics mentioned in my initial note. Reviewed drug interactions, risk/benefit ratio favors no further change. JORY LOPEZ MD DR: JAMIE/geneva JOB#: [id number] / [id number]
== END 2017-01-15 15:26 | disposition home or self-care (01) | DRG 602 ==
LOC: ER 07:47 → 1 SOUTH 09:55
PROVIDERS: ADMIT Family Medicine; ATTEND Family Medicine
PROC: 0HDNXZZ Extraction of Left Foot Skin, External Approach (ICD-10-PCS; principal; 2017-01-11)
PROC: 0HDNXZZ Extraction of Left Foot Skin, External Approach (ICD-10-PCS; 2017-01-13)
DX: L03.116 Cellulitis of left lower limb (principal); E43 Unspecified severe protein-calorie malnutrition; E10.22 Type 1 diabetes mellitus with diabetic chronic kidney disease; E10.40 Type 1 diabetes mellitus with diabetic neuropathy, unspecified; B80 Enterobiasis; E10.51 Type 1 diabetes mellitus with diabetic peripheral angiopathy without gangrene; E86.0 Dehydration; L97.429 Non-pressure chronic ulcer of left heel and midfoot with unspecified severity; F15.23 Other stimulant dependence with withdrawal; F33.9 Major depressive disorder, recurrent, unspecified; E10.621 Type 1 diabetes mellitus with foot ulcer; E10.65 Type 1 diabetes mellitus with hyperglycemia; E78.5 Hyperlipidemia, unspecified; E87.6 Hypokalemia; F17.210 Nicotine dependence, cigarettes, uncomplicated; F41.9 Anxiety disorder, unspecified; I12.9 Hypertensive chronic kidney disease with stage 1 through stage 4 chronic kidney disease, or unspecified chronic kidney disease; L84 Corns and callosities; G89.29 Other chronic pain; N18.9 Chronic kidney disease, unspecified; F12.10 Cannabis abuse, uncomplicated; Z59.0 Homelessness; Z79.01 Long term (current) use of anticoagulants; Z79.4 Long term (current) use of insulin; Z79.82 Long term (current) use of aspirin; Z79.899 Other long term (current) drug therapy; Z89.411 Acquired absence of right great toe; Z91.11 Patient's noncompliance with dietary regimen; Z91.14 Patient's other noncompliance with medication regimen; Z91.19 Patient's noncompliance with other medical treatment and regimen; Z88.8 Allergy status to other drugs, medicaments and biological substances; Z89.421 Acquired absence of other right toe(s)
CPT/HCPCS: 36415; 71010; 73701; 80048; 80053; 80076; 80202; 80307; 81001; 82553; 82947; 83605; 83690; 83735; 83880; 84443; 84484; 85025; 85610; 85730; 87177; 87324; 90471; 90715; 93005; 96374; 99406; J1815; J2405; J3370; J7040; J7050; 97530; 99285-25; G0479; J7030